=== PATIENT | female | born 1980 | race American Indian/Alaskan Native ===

== ENCOUNTER 2016-08-14 16:24 | Outpatient (CLI) | payer MEDICAID ==
[2016-08-14] MEDS ORDERED: LACTATED RINGERS 500 ML IV ONE (16:41)
[2016-08-14 17:13] LABS: Bacteria,Urine 1+ /HPF (Negative); Bilirubin,Urine NEG (Negative); Blood,Urine NEG (Negative); Ketones,Urine TR mg/dL (Negative); Leukocyte Esterase,Urine TR (Negative); Mucus,Urine FEW /HPF; Nitrite,Urine NEG (Negative); Protein,Urine <15 mg/dL mg/dL (Negative); Urobilinogen,Urine < 2.0 mg/dL (<2.0)
[2016-08-14 18:16] LABS: Basophils % (Auto) 0.5 % (0.0-1.8); Eosinophils % (Auto) 0.7 % (0.0-4.3); Hematocrit 33.3 % (30.3-42.9); Mean Corpuscular HGB Conc 33 % (30-34); Mean Corpuscular Hemoglobin 27 pg (28-32); Mean Corpuscular Volume 82 fl (79-97); Platelet Count 231 K/mm3 (140-440); Red Blood Count 4.08 M/mm3 (3.65-5.03); Red Cell Distribution Width 15.8 % (13.2-15.2); White Blood Count 10.2 K/mm3 (4.5-11.0)
[2016-08-14 18:35] LABS: Alanine Aminotransferase 16 units/L (7-56); Lactate Dehydrogenase 285 units/L (91-180)
[2016-08-14 19:23] VITALS: BP 135/74
[2016-08-14] MEDS ORDERED: LACTATED RINGERS 1,000 ML ONE (19:40)
--- NOTE | 2016-08-15 09:24 | Ultrasound Report ---
BIOPHYSICAL PROFILE: TECHNIQUE: Transabdominal ultrasound with Doppler interrogation. 2 - breathing movements 2 - movements 2 - posture and tone 2 - Qualitative amniotic fluid volume 8 - TOTAL SCORE OF POSSIBLE 8 Heart Rate (bpm) 144
--- NOTE | 2016-08-15 09:24 | Ultrasound Report ---
OB ULTRASOUND: TECHNIQUE: Transabdominal ultrasound with Doppler interrogation. Gestation: rice Position: cephalic Amniotic Fluid: WNL (7-24 cm) AMIE = 20.3 cm Placenta: fundal Placental Grade: II Heart Rate: 144 BPM BPD: 7.7 cm = 30 w 5 d HC: 28.9 cm = 31 w 5 d AC: 28.0 cm = 32 w 0 d FL: 6.5 cm = 33 w 2 d HC/AC Ratio: 1.03 Cephalic Index: 78.0 Estimated Weight: 1936 grams Clinical age = 32 w 1 d EDC: 10-08-16 US Gest. Age = 32 w 0 d EDC: 10-09-16
== END 2016-08-14 20:45 | disposition home or self-care (01) ==
LOC: TRG 16:24 → LD 16:25 → TRG 20:45
PROVIDERS: ATTEND Obstetrics & Gynecology
DX: Z34.93 Encounter for supervision of normal pregnancy, unspecified, third trimester (principal); Z3A.32 32 weeks gestation of pregnancy
CPT/HCPCS: 36415; 76816; 76819; 81001; 82565; 83615; 84450; 84460; 84550; 85025; 85027; J7120; 59025; 96360

== ENCOUNTER 2016-08-21 16:58 | Inpatient (IN) | payer MEDICAID ==
[2016-08-21] MEDS ORDERED: LACTATED RINGERS 500 ML IV ONE (17:34)
[2016-08-21 18:11] LABS: Hemoglobin 11.6 gm/dl (10.1-14.3); Mean Corpuscular HGB Conc 33 % (30-34); Mean Corpuscular Hemoglobin 27 pg (28-32); Mean Corpuscular Volume 83 fl (79-97); Platelet Count 236 K/mm3 (140-440); Red Blood Count 4.24 M/mm3 (3.65-5.03); White Blood Count 10.3 K/mm3 (4.5-11.0)
[2016-08-21 18:18] LABS: Bilirubin,Urine NEG (Negative); Blood,Urine NEG (Negative); Ketones,Urine NEG (Negative); Leukocyte Esterase,Urine NEG (Negative); Nitrite,Urine NEG (Negative); Protein,Urine <15 mg/dL mg/dL (Negative); Urobilinogen,Urine < 2.0 mg/dL (<2.0)
[2016-08-21 18:37] LABS: Alanine Aminotransferase 14 units/L (7-56); Uric Acid 4.1 mg/dL (3.5-7.6)
[2016-08-21] MEDS ORDERED: NORMODYNE PO ONE (18:44)
--- NOTE | 2016-08-21 18:50 | Event Note ---
Date: 08/21/16 Pt denies any headaches and blurry vision. She did not make apt today in the office due to not realizing it was scheduled at the [place] office. Pt has apt r/s for 08/24/16. Pt was due evening dose of meds at 1800 so will give the evening dose of the 800mg at this time. BP is elevated but improved with resting. Pt encouraged to keep apt and to continue to check bp. If bp stable will d/c home at this time. [facility] labs so far are negative for pre E.
[2016-08-21] MEDS ORDERED: LACTATED RINGERS 1,000 ML ONE (20:20)
[2016-08-21] MEDS ORDERED: MYLICON PO PRN (22:05)
[2016-08-21] MEDS ORDERED: ALUM-MAG HYDROX-SIMETH 200-200-20MG/5ML PO PRN (22:05)
[2016-08-21] MEDS ORDERED: COLACE PO PRN (22:05)
[2016-08-21] MEDS ORDERED: D50W (25GM) IV PRN (22:11)
--- NOTE | 2016-08-21 22:52 | History and Physical Report ---
[id number] complaint: elevated BP History of present illness: Pt presented to triage for evaluation for elevated blood pressures. She had taken medication late in the morning and was due to take next dose at the time. Pt was given dose of BP meds in triage and bp did respond. Pt however, was having contractions. Pt admitted for observation. EDC Calculations LMP: 10/08/2016 EDC Confirmation: 10/08/2016 Gestational Age: 7 1/7 weeks Past History : 2 Term Births: 1 Living Children: 1 Para: 1 Prev : 1 Aborta: 0 # 1 Delivery date: 2000 Weeks Gestation: term labor: no Delivery type: Delivery location: [place] Infant Sex: Male weight: 8# Comments: "baby's chin go stuck under pubic bone" Stat c/s Past Medical History: Diabetes, Type 2 Hypertension Past Surgical History: deviated septum repair 2014 Past Medical History Diabetes: yes Surgery (Non-supervisor sample preparation): deviated septum repair 2014 Abnormal PAP: positive, age 15, NL since [id number] Exposure: negative Infertility: negative Uterine Anomaly: negative Uterine Surgery (not C/S): negative Other Gynecologic Problems: negative Social Hx: Patient is single Smoking History: Patient is a former smoker. no drugs or ETOH Infection History Hx of STD: HPV HIV Risk Eval: no Hepatitis B Risk Eval: low risk Personal hx. of genital herpes: no Partner hx. of genital herpes: no Rash, Viral, or Febrile illness since last LMP? no Varicella/Chicken Pox Status: Previous Disease TB Risk: no Genetic History ADVANCED MATERNAL AGE Congenital Heart Defect: Mom: no Dad: no Alycia Disease: Mom: no Dad: no Thalassemia Mom: no Dad: no Neural Tube Defect Mom: no Dad: no Down's Syndrome Mom: no Dad: no Ethan-Sachs Mom: no Dad: no Sickle Cell Disease/Trait Mom: no Dad: no Hemophilia Mom: no Dad: no Muscular Dystrophy Mom: no Dad: no Cystic Fibrosis Mom: no Dad: no [place]ier Chorea Mom: no Dad: no Mental Retardation Mom: no Dad: no Fragile X Mom: no Dad: no Other Genetic/Chromosomal Disorder Mom: no Dad: no Child w/other defect Mom: no Dad: no Enviromental Exposures Xray Exposure: no Medication, drug, or alcohol use since LMP: no Chemical/Other Exposure: no Exposure to Cat Liter: no Hx of Parvovirus (Fifth Disease): no Occupational Exposure to Children: none Current Allergies (reviewed today): No known allergies Past History Past Medical History: hypertension, diabetes 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) Social history: other (see hpi) - Obstetrical History Expected Date of Delivery: 10/08/16 Actual Gestation: 33 Week(s) 2 Day(s) : 2 Para: 1 Number of Living Children: 1 Medications and Allergies Allergies Allergy/AdvReac Type Severity Reaction Status Date / Time Penicillins AdvReac Unknown Unknown Verified 04/11/16 16:09 Home Medications Medication Instructions Recorded Confirmed Last Taken Type Insulin Aspart Prot/Aspart 20 units SQ QHS 04/12/16 04/12/16 04/10/16 21:00 History [Novolog Mix 70/30] Insulin Glargine [Lantus] See Protocol SUB-Q BID 04/12/16 04/12/16 04/11/16 08: 00 History Labetalol [Normodyne] 600 mg PO TID 04/12/16 04/12/16 04/12/16 08:00 History 600mg Azithromycin [Zithromax] 250 mg PO QDAY #4 tablet 04/13/16 Unknown Rx Active Meds: Active Medications Acetaminophen (Tylenol) 650 mg PO Q4H PRN PRN Reason: Pain MILD(1-3)/Fever >100.5/PACE Al Hydrox/Mg Hydrox/Simethicone (Alum-Mag Hydrox-Simeth [id number]/5ml) 30 ml PO Q6H PRN PRN Reason: Indigestion Dextrose (D50w (25gm)) 50 ml IV PRN PRN PRN Reason: Hypoglycemia Docusate Sodium (Colace) 100 mg PO Q12H PRN PRN Reason: Constipation Lactated Ringer's (Lactated Ringers) 1,000 mls @ 125 mls/hr IV DIRECT HERO Insulin Human Regular (Novolin R) 0 units SUB-Q QHS HERO PRN Reason: Protocol Labetalol HCl (Normodyne) 800 mg PO TID HERO Multivitamins/Iron/Calcium ( Vitamin) 1 each PO QDAY HERO Nifedipine (Procardia Xl) 30 mg PO QDAY HERO Simethicone (Mylicon) 80 mg PO Q6H PRN PRN Reason: Gas pain Zolpidem Tartrate (Ambien) 10 mg PO ONCE PRN PRN Reason: Sleep Review of Systems All systems: negative - Vital Signs Vital signs: Vital Signs Pulse BP Pulse Ox 76 174/81 100 08/21/16 17:31 08/21/16 17:31 08/21/16 17:31 Temp Pulse Resp BP Pulse Ox 98.1 F 88 22 141/64 99 08/21/16 19:12 08/21/16 22:17 08/21/16 19:12 08/21/16 22:11 08/21/16 22:17 - Physical Exam Lungs: Positive: Normal air movement Abdomen: Positive: normal appearance, soft, normal bowel sounds. Negative: guarding Extremities: Positive: normal. Negative: tenderness, edema - Obstetrical FHR: category 1 Results Result Diagrams: 08/21/16 17:45 08/21/16 17:45 Abnormal lab results 08/21/16 08/21/16 Range/Units 17:45 17:45 MCH 27 L (28-32) pg RDW 16.0 H (13.2-15.2) % Creatinine 0.6 L (0.7-1.2) mg/dL All other labs normal. Assessment and Plan - Patient Problems (1) 33 weeks gestation of Current Visit: Yes Status: Acute (2) Hypertension affecting in third trimester Current Visit: Yes Status: Acute Plan to address problem: -bp stable now -con't current bp meds (3) Diabetes in Current Visit: Yes Status: Acute Qualifiers: Trimester: third trimester Plan to address problem: -ADA diet -sliding scale insulin (4) uterine contractions in third trimester, antepartum Current Visit: Yes Status: Acute Plan to address problem: - IV hydration -closely monitor
[2016-08-21] MEDS: LACTATED RINGERS 1,000 ML IV SCH (23:32)
[2016-08-22] MEDS: TYLENOL PO PRN ×2 (05:00→11:17)
[2016-08-22] MEDS: NORMODYNE PO SCH ×3 (06:00→21:42)
--- NOTE | 2016-08-22 07:00 | Event Note ---
Date: 08/22/16 Blood pressures are in the severe range. Will start a 24hur urine collection at this time and administer steroids.
[2016-08-22] MEDS: LACTATED RINGERS 1,000 ML IV SCH ×2 (07:44→17:11)
--- NOTE | 2016-08-22 08:19 | Event Note ---
<EMERITA PORRAS - Last Filed: 08/22/16 08:05> Date: 08/22/16 36 yo last baby by c/s 17 years ago. EDC is 10/08 so is now 33wk and 2 days. Known chronic HTN on Labetolol 800mg bid and Nifedipine 30mg XL q d and known DM2. By her report is now on fasting Humulin N 10/ Novolog 20, and pc Novolog 30, and hs Humulin N 20. She was sent in for elevated BP and was found to be earl. BP has improved since BP meds reinstituted. HAS NOT HAD ANY INSULIN SINCE YESTERDAY AT 2 PM AND HER FASTING GLUCOSE WAS 106 BY ACCUCHECK. On my exam her cervix is long and closed, and she is not feeling and I can't palpate any of the contractions that are picking up on monitor, so at best she is having very mild ones. We have started steroids and begun a 24 hour urine. I suspect that she will need to be delivered after steroids are administered. Very concerning for decreased need for insulin at this point in this . Plan to reconsult [facility], who knows this patient well. <ROWDY DO - Last Filed: 08/22/16 08:25> Date: 08/22/[address] Do, did not realize I was logged in under Dr Porras 's name.
--- NOTE | 2016-08-22 08:24 | Event Note ---
Date: 08/22/16 Previous note written by , not Dr Porras
[2016-08-22] MEDS: CELESTONE SOLUSPAN IM SCH (08:27)
[2016-08-22] MEDS: PRENATAL VITAMIN PO SCH (11:19)
[2016-08-22] MEDS: PROCARDIA XL PO SCH (11:19)
--- NOTE | 2016-08-22 12:06 | Event Note ---
Date: 08/22/16 postprandial glucose 177 so added: Insulin N 10 u in AM and 10u hs Insulin R 10 u with meals high dose sliding scale of Insulin R
[2016-08-22] MEDS: APRESOLINE IV PRN (12:34)
--- NOTE | 2016-08-22 13:15 | Consultation ---
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 History : 2 Medications and Allergies Allergies Allergy/AdvReac Type Severity Reaction Status Date / Time Penicillins AdvReac Unknown Unknown Verified 04/11/16 16:09 Home Medications Medication Instructions Recorded Confirmed Last Taken Type Insulin Aspart Prot/Aspart 20 units SQ QHS 04/12/16 04/12/16 04/10/16 21:00 History [Novolog Mix 70/30] Insulin Glargine [Lantus] See Protocol SUB-Q BID 04/12/16 04/12/16 04/11/16 08: 00 History Labetalol [Normodyne] 600 mg PO TID 04/12/16 04/12/16 04/12/16 08:00 History 600mg Azithromycin [Zithromax] 250 mg PO QDAY #4 tablet 04/13/16 Unknown Rx Active Meds: Active Medications Acetaminophen (Tylenol) 650 mg PO Q4H PRN PRN Reason: Pain MILD(1-3)/Fever >100.5/PACE Last Admin: 08/22/16 11:17 Dose: 650 mg Al Hydrox/Mg Hydrox/Simethicone (Alum-Mag Hydrox-Simeth [id number]/5ml) 30 ml PO Q6H PRN PRN Reason: Indigestion Betamethasone Acet/Betameth SodPhos (Celestone Soluspan) 12 mg IM Q24HR HERO Last Admin: 08/22/16 08:27 Dose: 12 mg Dextrose (D50w (25gm)) 50 ml IV PRN PRN PRN Reason: Hypoglycemia Docusate Sodium (Colace) 100 mg PO Q12H PRN PRN Reason: Constipation Hydralazine HCl (Apresoline) 5 mg IV Q30MIN PRN PRN Reason: Blood Pressure Last Admin: 08/22/16 12:34 Dose: 5 mg Lactated Ringer's (Lactated Ringers) 1,000 mls @ 125 mls/hr IV DIRECT HERO Last Admin: 08/22/16 07:44 Dose: 125 mls/hr Insulin Human NPH (Novolin N) 10 unit SUB-Q BIDDIAB HERO Stop: 08/24/16 16:59 Insulin Human Regular (Novolin R) 0 units SUB-Q QHS HERO PRN Reason: Protocol Insulin Human Regular (Novolin R) 10 units SUB-Q AC [facility] Stop: 08/24/16 11:59 Last Admin: 08/22/16 13:06 Dose: 10 units Labetalol HCl (Normodyne) 800 mg PO TID@0600,1400,2200 [facility] Last Admin: 08/22/16 06:00 Dose: 800 mg Multivitamins/Iron/Calcium ( Vitamin) 1 each PO QDAY [facility] Last Admin: 08/22/16 11:19 Dose: 1 each Nifedipine (Procardia Xl) 30 mg PO QDAY [facility] Last Admin: 08/22/16 11:19 Dose: 30 mg Simethicone (Mylicon) 80 mg PO Q6H PRN PRN Reason: Gas pain Zolpidem Tartrate (Ambien) 10 mg PO ONCE PRN PRN Reason: Sleep - Vital Signs Vital signs: Vital Signs Pulse BP Pulse Ox 76 174/81 100 08/21/16 17:31 08/21/16 17:31 08/21/16 17:31 Temp Pulse Resp BP Pulse Ox 97.7 F 83 20 154/78 97 08/22/16 08:32 08/22/16 13:12 08/22/16 11:17 08/22/16 12:40 08/22/16 13:12 Results Result Diagrams: 08/21/16 17:45 08/21/16 17:45 Abnormal lab results 08/21/16 08/21/16 08/22/16 Range/Units 17:45 17:45 06:19 MCH 27 L (28-32) pg RDW 16.0 H (13.2-15.2) % Creatinine 0.6 L (0.7-1.2) mg/dL POC Glucose 106 H (70-105) 08/22/16 Range/Units 11:22 MCH (28-32) pg RDW (13.2-15.2) % Creatinine (0.7-1.2) mg/dL POC Glucose 177 H (70-105) All other labs normal. Assessment and Plan AMF Consultation requested Pt seen Full consult to follow
--- NOTE | 2016-08-22 17:18 | Event Note ---
Date: 08/22/16 Pt BP much better now on her meds and at bedrest. Last glucose was 222, presumably there was insulin given per sliding scale orders. Will confirm that with the nurse.
[2016-08-22] MEDS ORDERED: D50W (25GM) IV PRN ×2 (17:37→17:54)
[2016-08-22] MEDS: AMBIEN PO PRN (22:04)
[2016-08-23] MEDS: LACTATED RINGERS 1,000 ML IV SCH ×3 (03:15→20:57)
[2016-08-23] MEDS: NORMODYNE PO SCH ×3 (07:00→22:25)
--- NOTE | 2016-08-23 07:39 | Progress Note ---
Assessment and Plan - Patient Problems (1) 33 weeks gestation of Diagnosis Date: 08/23/16 Current Visit: Yes Status: Acute Plan to address problem: BMZ BMZ to be completed @ 0830 this AM (2) Diabetes in Current Visit: Yes Status: Acute Qualifiers: Diabetes in type: pre-existing, type 2 Trimester: third trimester Qualified Code(s): O24.113 - Pre-existing type 2 diabetes mellitus, in , third trimester Plan to address problem: BS remain variable SS Insulin ordered Over 200 last PM. Fasting BS not yet recorded (3) Hypertension affecting in third trimester Current Visit: Yes Status: Acute Plan to address problem: BP very labile 170-160/80-60 Pt c/o severe PACE when she is OOB to go to the toilet and "that's when my BP is high" here now seeing pt will await her recommendations consulted (4) uterine contractions in third trimester, antepartum Current Visit: Yes Status: Acute Plan to address problem: Pt denies any ctx this AM. Monitor recording irreg mild ctx prior to pt being OOB to void. None recorded now. Will await AMFM consult 24hr urine pending consulted Subjective - Subjective Date of service: 08/23/16 (pt w/o complaint this AM Anxious to know the plan) Patient reports: new complaints (pt states she has a PACE when she gets up to go to the toilet), movement normal Objective - Vital Signs Vital Signs: Vital Signs - 12hr 08/22/16 08/22/16 08/22/16 20:00 20:01 20:06 Temperature 98.0 F Pulse Rate 82 83 71 Pulse Rate [ 78 From Monitor] Respiratory 20 Rate Blood Pressure 146/81 Blood Pressure 169/73 [Right Arm] O2 Sat by Pulse 99 99 Oximetry 08/22/16 08/22/16 08/22/16 20:11 20:16 20:21 Temperature Pulse Rate 93 H 85 95 H Pulse Rate [ From Monitor] Respiratory Rate Blood Pressure Blood Pressure [Right Arm] O2 Sat by Pulse 98 98 98 Oximetry 08/22/16 08/22/16 08/22/16 20:27 20:32 20:37 Temperature Pulse Rate 77 75 74 Pulse Rate [ From Monitor] Respiratory Rate Blood Pressure Blood Pressure [Right Arm] O2 Sat by Pulse 99 97 97 Oximetry 08/22/16 08/22/16 08/22/16 20:40 20:42 20:47 Temperature Pulse Rate 80 91 H 74 Pulse Rate [ From Monitor] Respiratory Rate Blood Pressure 143/74 Blood Pressure [Right Arm] O2 Sat by Pulse 97 98 Oximetry 08/22/16 08/22/16 08/22/16 20:52 20:57 21:02 Temperature Pulse Rate 75 85 85 Pulse Rate [ From Monitor] Respiratory Rate Blood Pressure Blood Pressure [Right Arm] O2 Sat by Pulse 97 97 96 Oximetry 08/22/16 08/22/16 08/22/16 21:07 21:12 21:17 Temperature Pulse Rate 79 79 77 Pulse Rate [ From Monitor] Respiratory Rate Blood Pressure Blood Pressure [Right Arm] O2 Sat by Pulse 97 96 96 Oximetry 08/22/16 08/22/16 08/22/16 21:22 21:27 21:32 Temperature Pulse Rate 79 81 84 Pulse Rate [ From Monitor] Respiratory Rate Blood Pressure Blood Pressure [Right Arm] O2 Sat by Pulse 97 97 97 Oximetry 08/22/16 08/22/16 08/22/16 21:37 21:40 21:42 Temperature Pulse Rate 78 73 78 Pulse Rate [ From Monitor] Respiratory Rate Blood Pressure 163/79 163/79 Blood Pressure [Right Arm] O2 Sat by Pulse 97 93 98 Oximetry 08/22/16 08/22/16 08/22/16 21:47 21:52 21:57 Temperature Pulse Rate 79 89 82 Pulse Rate [ From Monitor] Respiratory Rate Blood Pressure Blood Pressure [Right Arm] O2 Sat by Pulse 97 97 97 Oximetry 08/22/16 08/22/16 08/22/16 22:02 22:07 22:12 Temperature Pulse Rate 80 82 84 Pulse Rate [ From Monitor] Respiratory Rate Blood Pressure Blood Pressure [Right Arm] O2 Sat by Pulse 97 97 97 Oximetry 08/22/16 08/22/16 08/22/16 22:17 22:22 22:27 Temperature Pulse Rate 84 82 85 Pulse Rate [ From Monitor] Respiratory Rate Blood Pressure Blood Pressure [Right Arm] O2 Sat by Pulse 96 96 96 Oximetry 08/22/16 08/22/16 08/22/16 22:32 22:37 22:40 Temperature Pulse Rate 83 83 84 Pulse Rate [ From Monitor] Respiratory Rate Blood Pressure Blood Pressure [Right Arm] O2 Sat by Pulse 96 96 93 Oximetry 08/22/16 08/22/16 08/22/16 22:41 22:42 22:47 Temperature Pulse Rate 80 89 92 H Pulse Rate [ From Monitor] Respiratory Rate Blood Pressure 145/76 Blood Pressure [Right Arm] O2 Sat by Pulse 97 97 Oximetry 08/22/16 08/22/16 08/22/16 22:52 22:57 23:02 Temperature Pulse Rate 97 H 98 H 88 Pulse Rate [ From Monitor] Respiratory Rate Blood Pressure Blood Pressure [Right Arm] O2 Sat by Pulse 96 97 96 Oximetry 08/23/16 08/23/16 08/23/16 00:00 05:22 06:05 Temperature 97.8 F 97.7 F Pulse Rate 78 Pulse Rate [ 80 70 From Monitor] Respiratory 18 20 Rate Blood Pressure 140/72 Blood Pressure 145/76 93/52 [Right Arm] O2 Sat by Pulse Oximetry 08/23/16 08/23/16 08/23/16 07:00 07:30 07:31 Temperature 98.1 F Pulse Rate 70 78 71 Pulse Rate [ From Monitor] Respiratory 18 Rate Blood Pressure 93/52 146/84 Blood Pressure [Right Arm] O2 Sat by Pulse 98 98 Oximetry - Exam Breasts: deferred Cardiovascular: Regular rate Lungs: Normal air movement Abdomen: Present: normal appearance, soft Uterus: Present: normal FHR: category 1 Uterine Contraction Monitor Mode: External Uterine Contraction Pattern: Absent Uterine Tone Measurement Phase: Resting Extremities: edema Deep Tendon Reflex Grade: Normal but brisk +3 - Labs Labs: Abnormal Labs 08/21/16 08/21/16 08/22/16 17:45 17:45 06:19 MCH 27 L RDW 16.0 H Creatinine 0.6 L POC Glucose 106 H 08/22/16 08/22/16 08/22/16 11:22 16:51 20:12 MCH RDW Creatinine POC Glucose 177 H 222 H 238 H Laboratory Results - last 24 hr 08/22/16 08/22/16 08/22/16 11:22 16:51 20:12 POC Glucose 177 H 222 H 238 H
--- NOTE | 2016-08-23 07:44 | Progress Note ---
Assessment and Plan Assessment 1. 33+3 weeks 2. Chronic HTN, r/o superimposed pre-eclampsia 3. Type II diabetes, poor control (HgA1c on 07/18/16 was 9.6%) 4. contractions 5. Previous c/s 6. Obesity Recommendations 1. 24 hour urine pending 2. Continue present BP meds, IV meds as needed, could increase nifedipine to 60mg/day if needed 3. Continue insulin and ss insulin 4. Steroid -- second dose this AM 5. If 24 hour urine c/w pre-eclampsia (>300mg), meets criteria for severe disease, and delivery indicated at 34 weeks 6. If 24 hour urine not c/w pre-eclampsia, aggressive management of HTN recommended, other indications for delivery include inability to control BP, indications, 37 weeks (likely to be sooner) Subjective - Subjective Date of service: 08/23/16 Interval history: Denies PACE or visual changes Patient reports: movement normal Objective - Vital Signs Vital Signs: Vital Signs - 12hr 08/22/16 08/22/16 08/22/16 20:00 20:01 20:06 Temperature 98.0 F Pulse Rate 82 83 71 Pulse Rate [ 78 From Monitor] Respiratory 20 Rate Blood Pressure 146/81 Blood Pressure 169/73 [Right Arm] O2 Sat by Pulse 99 99 Oximetry 08/22/16 08/22/16 08/22/16 20:11 20:16 20:21 Temperature Pulse Rate 93 H 85 95 H Pulse Rate [ From Monitor] Respiratory Rate Blood Pressure Blood Pressure [Right Arm] O2 Sat by Pulse 98 98 98 Oximetry 08/22/16 08/22/16 08/22/16 20:27 20:32 20:37 Temperature Pulse Rate 77 75 74 Pulse Rate [ From Monitor] Respiratory Rate Blood Pressure Blood Pressure [Right Arm] O2 Sat by Pulse 99 97 97 Oximetry 08/22/16 08/22/16 08/22/16 20:40 20:42 20:47 Temperature Pulse Rate 80 91 H 74 Pulse Rate [ From Monitor] Respiratory Rate Blood Pressure 143/74 Blood Pressure [Right Arm] O2 Sat by Pulse 97 98 Oximetry 08/22/16 08/22/16 08/22/16 20:52 20:57 21:02 Temperature Pulse Rate 75 85 85 Pulse Rate [ From Monitor] Respiratory Rate Blood Pressure Blood Pressure [Right Arm] O2 Sat by Pulse 97 97 96 Oximetry 08/22/16 08/22/16 08/22/16 21:07 21:12 21:17 Temperature Pulse Rate 79 79 77 Pulse Rate [ From Monitor] Respiratory Rate Blood Pressure Blood Pressure [Right Arm] O2 Sat by Pulse 97 96 96 Oximetry 08/22/16 08/22/16 08/22/16 21:22 21:27 21:32 Temperature Pulse Rate 79 81 84 Pulse Rate [ From Monitor] Respiratory Rate Blood Pressure Blood Pressure [Right Arm] O2 Sat by Pulse 97 97 97 Oximetry 08/22/16 08/22/16 08/22/16 21:37 21:40 21:42 Temperature Pulse Rate 78 73 78 Pulse Rate [ From Monitor] Respiratory Rate Blood Pressure 163/79 163/79 Blood Pressure [Right Arm] O2 Sat by Pulse 97 93 98 Oximetry 08/22/16 08/22/16 08/22/16 21:47 21:52 21:57 Temperature Pulse Rate 79 89 82 Pulse Rate [ From Monitor] Respiratory Rate Blood Pressure Blood Pressure [Right Arm] O2 Sat by Pulse 97 97 97 Oximetry 08/22/16 08/22/16 08/22/16 22:02 22:07 22:12 Temperature Pulse Rate 80 82 84 Pulse Rate [ From Monitor] Respiratory Rate Blood Pressure Blood Pressure [Right Arm] O2 Sat by Pulse 97 97 97 Oximetry 08/22/16 08/22/16 08/22/16 22:17 22:22 22:27 Temperature Pulse Rate 84 82 85 Pulse Rate [ From Monitor] Respiratory Rate Blood Pressure Blood Pressure [Right Arm] O2 Sat by Pulse 96 96 96 Oximetry 08/22/16 08/22/16 08/22/16 22:32 22:37 22:40 Temperature Pulse Rate 83 83 84 Pulse Rate [ From Monitor] Respiratory Rate Blood Pressure Blood Pressure [Right Arm] O2 Sat by Pulse 96 96 93 Oximetry 08/22/16 08/22/16 08/22/16 22:41 22:42 22:47 Temperature Pulse Rate 80 89 92 H Pulse Rate [ From Monitor] Respiratory Rate Blood Pressure 145/76 Blood Pressure [Right Arm] O2 Sat by Pulse 97 97 Oximetry 08/22/16 08/22/16 08/22/16 22:52 22:57 23:02 Temperature Pulse Rate 97 H 98 H 88 Pulse Rate [ From Monitor] Respiratory Rate Blood Pressure Blood Pressure [Right Arm] O2 Sat by Pulse 96 97 96 Oximetry 08/23/16 08/23/16 08/23/16 00:00 05:22 06:05 Temperature 97.8 F 97.7 F Pulse Rate 78 Pulse Rate [ 80 70 From Monitor] Respiratory 18 20 Rate Blood Pressure 140/72 Blood Pressure 145/76 93/52 [Right Arm] O2 Sat by Pulse Oximetry 08/23/16 08/23/16 08/23/16 07:00 07:30 07:31 Temperature 98.1 F Pulse Rate 70 78 71 Pulse Rate [ From Monitor] Respiratory 18 Rate Blood Pressure 93/52 146/84 Blood Pressure [Right Arm] O2 Sat by Pulse 98 98 Oximetry - Exam Cardiovascular: Regular rate Lungs: Clear to auscultation Abdomen: Present: normal appearance, soft - Labs Labs: Abnormal Labs 08/21/16 08/21/16 08/22/16 17:45 17:45 06:19 MCH 27 L RDW 16.0 H Creatinine 0.6 L POC Glucose 106 H 08/22/16 08/22/16 08/22/16 11:22 16:51 20:12 MCH RDW Creatinine POC Glucose 177 H 222 H 238 H Laboratory Results - last 24 hr 08/22/16 08/22/16 08/22/16 11:22 16:51 20:12 POC Glucose 177 H 222 H 238 H
--- NOTE | 2016-08-23 08:18 | Ultrasound Report ---
BIOPHYSICAL PROFILE: History: well-being. Technique: Transabdominal ultrasound with Doppler interrogation. 2 - breathing movements 2 - movements 2 - posture and tone 2 - Qualitative amniotic fluid volume 8 - TOTAL SCORE OF POSSIBLE 8 Heart Rate (bpm) 139
[2016-08-23] MEDS: CELESTONE SOLUSPAN IM SCH ×2 (08:30→22:11)
--- NOTE | 2016-08-23 10:23 | Ultrasound Report ---
OB ULTRASOUND: HISTORY: well-being. TECHNIQUE: Transabdominal ultrasound with Doppler interrogation. Gestation: rice Position: cephalic Amniotic Fluid: WNL (7-24 cm) AMIE = 22.5 cm Placenta: fundal Placental Grade: II Heart Rate: 139 BPM BPD: 7.9 cm = 31 w 6 d HC: 30.8 cm = 34 w 2 d AC: 29.4 cm = 33 w 2 d FL: 6.5 cm = 33 w 4 d HC/AC Ratio: 1.05 Cephalic Index: 77.0 Estimated Weight: 2176 grams Clinical age = 33 w 2 d EDC: 10-08-16 US Gest. Age = 33 w 2 d EDC: 10-08-16
[2016-08-23] MEDS: PRENATAL VITAMIN PO SCH (10:33)
[2016-08-23] MEDS: PROCARDIA XL PO SCH (10:33)
--- NOTE | 2016-08-23 19:08 | Event Note ---
Date: 08/23/16 Appreciate maternal-'s help. Patient 24 hour urine protein was elevated. Discussed the findings with the patient and discussed the plan of care. Patient understands the plan is to deliver at 34 weeks. She will deliver by section and desires tubal ligation.Patient desires permanent sterilization. She declined temporary contraceptives. She understands the risks of the surgery include bleeding infection possible damage to bowel bladder or ureters. She understands that this surgery would make her permanently sterile. She also understands the approximate 1% failure rate. The patient understands all the above and desires to proceed. She also understands that she will deliver early than 34 weeks for any or maternal indications.
[2016-08-23] MEDS: AMBIEN PO PRN (22:25)
[2016-08-24] MEDS: LACTATED RINGERS 1,000 ML IV SCH ×2 (03:55→14:21)
[2016-08-24] MEDS: NORMODYNE PO SCH ×4 (06:17→22:27)
[2016-08-24] MEDS: APRESOLINE IV PRN ×2 (08:30→22:40)
--- NOTE | 2016-08-24 08:59 | Progress Note ---
Assessment and Plan - Patient Problems (1) 33 weeks gestation of Diagnosis Date: 08/23/16 Current Visit: Yes Status: Acute (2) Chronic hypertension with superimposed pre-eclampsia Current Visit: Yes Status: Acute Plan to address problem: 1. Continue present BP meds, IV meds as needed, could increase nifedipine to 60mg/day if needed 2. Continue insulin and ss insulin 3. Steroid -- second dose performed 08/23/2016 @830a 4. 24 hour urine c/w pre-eclampsia (>300mg), meets criteria for severe disease, will deliver indicated at 34 weeks (3) Maternal care due to low transverse uterine scar from previous delivery Current Visit: Yes Status: Acute (4) Sterilization Current Visit: Yes Status: Acute Plan to address problem: Consent signed and on chart (5) Diabetes in Current Visit: Yes Status: Acute Qualifiers: Diabetes in type: pre-existing, type 2 Trimester: third trimester Qualified Code(s): O24.113 - Pre-existing type 2 diabetes mellitus, in , third trimester (6) BMI 38.0-38.9,adult Current Visit: Yes Status: Acute Subjective - Subjective Date of service: 08/24/16 Principal diagnosis: IUP@33 4/7wga, CHTN w/ PreE, DM Patient reports: movement normal, no new complaints, no contractions ( denies PACE, visual changes or RUQ pain) Objective - Vital Signs Vital Signs: Vital Signs - 12hr 08/23/16 08/23/16 08/23/16 21:33 22:07 22:25 Temperature Pulse Rate 75 66 66 Pulse Rate [ From Monitor] Respiratory Rate Blood Pressure 170/84 124/59 124/59 Blood Pressure [Left Arm] O2 Sat by Pulse Oximetry 08/23/16 08/23/16 08/24/16 22:34 23:33 00:35 Temperature Pulse Rate 68 88 91 H Pulse Rate [ From Monitor] Respiratory Rate Blood Pressure 137/63 143/66 Blood Pressure [Left Arm] O2 Sat by Pulse 97 Oximetry 08/24/16 08/24/16 08/24/16 00:36 00:38 01:34 Temperature 98.3 F Pulse Rate 82 70 Pulse Rate [ From Monitor] Respiratory 22 Rate Blood Pressure 155/72 135/72 Blood Pressure [Left Arm] O2 Sat by Pulse Oximetry 08/24/16 08/24/16 08/24/16 02:35 03:33 03:46 Temperature Pulse Rate 68 60 66 Pulse Rate [ From Monitor] Respiratory Rate Blood Pressure 128/72 124/65 Blood Pressure [Left Arm] O2 Sat by Pulse 98 Oximetry 08/24/16 08/24/16 08/24/16 03:56 06:13 06:14 Temperature 98.4 F Pulse Rate 58 L 63 Pulse Rate [ From Monitor] Respiratory 22 Rate Blood Pressure 140/77 Blood Pressure [Left Arm] O2 Sat by Pulse 98 Oximetry 08/24/16 08/24/16 08/24/16 06:17 06:19 06:24 Temperature Pulse Rate 58 L 57 L 62 Pulse Rate [ From Monitor] Respiratory Rate Blood Pressure 140/77 Blood Pressure [Left Arm] O2 Sat by Pulse 98 99 Oximetry 08/24/16 08/24/16 08/24/16 07:15 08:11 08:13 Temperature 98.3 F Pulse Rate 60 61 Pulse Rate [ 62 From Monitor] Respiratory 18 Rate Blood Pressure 142/72 179/82 Blood Pressure 179/82 [Left Arm] O2 Sat by Pulse 98 99 Oximetry 08/24/16 08/24/16 08/24/16 08:29 08:30 08:34 Temperature Pulse Rate 62 62 68 Pulse Rate [ From Monitor] Respiratory Rate Blood Pressure 179/82 179/82 157/73 Blood Pressure [Left Arm] O2 Sat by Pulse Oximetry 08/24/16 08:38 Temperature Pulse Rate 72 Pulse Rate [ From Monitor] Respiratory Rate Blood Pressure 152/76 Blood Pressure [Left Arm] O2 Sat by Pulse Oximetry - Exam Breasts: deferred Cardiovascular: Regular rate Lungs: Clear to auscultation, Normal air movement Abdomen: Present: normal appearance, soft FHR comments: current having AM care Uterine Contraction Monitor Mode: External Extremities: normal Deep Tendon Reflex Grade: Normal +2 - Labs Labs: Abnormal Labs 08/21/16 08/21/16 08/22/16 17:45 17:45 06:19 MCH 27 L RDW 16.0 H Creatinine 0.6 L POC Glucose 106 H Urine Creatinine Ur Total Protein 24 Hr Urine Total Protein 08/22/16 08/22/16 08/22/16 11:22 16:51 20:00 MCH RDW Creatinine POC Glucose 177 H 222 H Urine Creatinine 62.9 H Ur Total Protein 24 Hr 728.00 H Urine Total Protein 26 H 08/22/16 08/23/16 08/23/16 20:12 10:32 14:37 MCH RDW Creatinine POC Glucose 238 H 149 H 260 H Urine Creatinine Ur Total Protein 24 Hr Urine Total Protein 08/23/16 08/23/16 08/24/16 19:49 22:24 05:49 MCH RDW Creatinine POC Glucose 225 H 201 H 111 H Urine Creatinine Ur Total Protein 24 Hr Urine Total Protein Laboratory Results - last 24 hr 08/22/16 08/23/16 08/23/16 20:00 10:32 14:37 POC Glucose 149 H 260 H Urine Creatinine 62.9 H Ur Creatinine 24 Hour 1.8 Ur Total Protein 24 Hr 728.00 H Urine Total Protein 26 H 08/23/16 08/23/16 08/24/16 19:49 22:24 05:49 POC Glucose 225 H 201 H 111 H Urine Creatinine Ur Creatinine 24 Hour Ur Total Protein 24 Hr Urine Total Protein
[2016-08-24 09:41] LABS: Hematocrit 31.9 % (30.3-42.9); Hemoglobin 10.4 gm/dl (10.1-14.3); Mean Corpuscular HGB Conc 32 % (30-34); Mean Corpuscular Hemoglobin 27 pg (28-32); Mean Corpuscular Volume 82 fl (79-97); Platelet Count 210 K/mm3 (140-440); Red Blood Count 3.89 M/mm3 (3.65-5.03); Red Cell Distribution Width 16.1 % (13.2-15.2); White Blood Count 10.5 K/mm3 (4.5-11.0)
[2016-08-24 09:55] LABS: Alanine Aminotransferase 14 units/L (7-56); Lactate Dehydrogenase 171 units/L (91-180); Uric Acid 5.5 mg/dL (3.5-7.6)
[2016-08-24] MEDS: PRENATAL VITAMIN PO SCH ×2 (09:58→10:14)
[2016-08-24] MEDS: PROCARDIA XL PO SCH (10:13)
--- NOTE | 2016-08-24 10:58 | Ultrasound Report ---
OB LIMITED History: well-being Technique: Transabdominal ultrasound with Doppler interrogation. Gestation: Single Position: Cephalic Amniotic Fluid: Normal AMIE = 21.3 cm Heart Rate: 133 BPM
[2016-08-25] MEDS: APRESOLINE IV PRN ×3 (03:10→19:59)
--- NOTE | 2016-08-25 05:23 | Progress Note ---
Assessment and Plan - Patient Problems (1) 33 weeks gestation of Diagnosis Date: 08/23/16 Current Visit: Yes Status: Acute (2) Diabetes in Current Visit: Yes Status: Acute Qualifiers: Diabetes in type: pre-existing, type 2 Trimester: third trimester Qualified Code(s): O24.113 - Pre-existing type 2 diabetes mellitus, in , third trimester (3) Hypertension affecting in third trimester Current Visit: Yes Status: Acute Plan to address problem: Received call from RN caring for pt stating she had to give a second dose of Hydralizine for her shift. First dose was given @ 2240 for BPs 192/85, 181/79 Pressures responded well remaining in the 140-150/60-80 until 0230 BP 180/84 second dose Hydralizine was given. was informed by myself She called RN and further instructions were given and noted. BPs now 150-160/70-80 Visited with pt on my arrival. Pt is in good spirits Denies any PACE, blurred vision, chest pain. DTRs brisk w/o clonus, edema in hands and face. FHR tracing has episodes of minimal variability, with obsessional accels with movement. Overall reassuring strip. Periods of ctx appear to be related to when pt needs to empty her bladder. The ctx go away after voiding. Pt denies feeling most of them. Pt is now NPO. Will report to . Continue plan of care. (4) uterine contractions in third trimester, antepartum Current Visit: Yes Status: Acute Subjective - Subjective Date of service: 08/25/16 (pt in good spirits; denies PACE, blurred vision, chest pain) Principal diagnosis: IUP@33 4/7wga, CHTN w/ PreE, DM Patient reports: movement normal, no new complaints, no contractions ( denies PACE, visual changes or RUQ pain) Objective - Vital Signs Vital Signs: Vital Signs - 12hr 08/24/16 08/24/16 08/24/16 19:50 19:51 22:27 Temperature 98.6 F Pulse Rate 68 68 Respiratory 22 Rate Blood Pressure 134/76 181/79 08/24/16 08/24/16 08/24/16 22:34 22:40 22:47 Temperature Pulse Rate 68 68 72 Respiratory Rate Blood Pressure 181/79 181/79 171/79 08/24/16 08/24/16 08/24/16 22:52 22:57 23:01 Temperature Pulse Rate 70 69 68 Respiratory Rate Blood Pressure 192/85 170/77 164/70 08/24/16 08/24/16 08/25/16 23:06 23:14 00:16 Temperature Pulse Rate 75 71 85 Respiratory Rate Blood Pressure 164/75 132/59 148/69 08/25/16 08/25/16 08/25/16 00:33 01:16 02:16 Temperature 98.2 F Pulse Rate 82 78 Respiratory 20 Rate Blood Pressure 135/62 145/63 08/25/16 08/25/16 08/25/16 02:32 02:44 02:55 Temperature Pulse Rate 65 69 69 Respiratory Rate Blood Pressure 168/77 166/77 180/84 08/25/16 08/25/16 08/25/16 03:15 03:21 03:26 Temperature Pulse Rate 65 67 71 Respiratory Rate Blood Pressure 157/77 156/79 156/74 08/25/16 08/25/16 08/25/16 03:31 03:36 03:41 Temperature Pulse Rate 77 71 73 Respiratory Rate Blood Pressure 169/74 165/72 151/67 08/25/16 08/25/16 03:46 05:00 Temperature Pulse Rate 77 66 Respiratory Rate Blood Pressure 153/70 171/83 - Exam Breasts: deferred Cardiovascular: Regular rate Lungs: Clear to auscultation, Normal air movement Abdomen: Present: normal appearance, soft, normal bowel sounds. Absent: distention, tenderness Vulva: both: normal Uterus: Present: normal FHR: auscultation normal, category 1 (periods of decreased variability; overall reassuring) Uterine Contraction Monitor Mode: External Uterine Contraction Frequency (min): irregular Uterine Contraction Pattern: Irregular Uterine Tone Measurement Phase: Resting Uterine Contraction Intensity: Mild (pt denies feeling most of them) - Labs Labs: Abnormal Labs 08/21/16 08/21/16 08/22/16 17:45 17:45 06:19 MCH 27 L RDW 16.0 H Creatinine 0.6 L POC Glucose 106 H Urine Creatinine Ur Total Protein 24 Hr Urine Total Protein 08/22/16 08/22/16 08/22/16 11:22 16:51 20:00 MCH RDW Creatinine POC Glucose 177 H 222 H Urine Creatinine 62.9 H Ur Total Protein 24 Hr 728.00 H Urine Total Protein 26 H 08/22/16 08/23/16 08/23/16 20:12 10:32 14:37 MCH RDW Creatinine POC Glucose 238 H 149 H 260 H Urine Creatinine Ur Total Protein 24 Hr Urine Total Protein 08/23/16 08/23/16 08/24/16 19:49 22:24 05:49 MCH RDW Creatinine POC Glucose 225 H 201 H 111 H Urine Creatinine Ur Total Protein 24 Hr Urine Total Protein 08/24/16 08/24/16 08/24/16 08:53 08:53 10:09 MCH 27 L RDW 16.1 H Creatinine 0.6 L POC Glucose 159 H Urine Creatinine Ur Total Protein 24 Hr Urine Total Protein 08/24/16 08/24/16 08/24/16 13:42 19:16 22:10 MCH RDW Creatinine POC Glucose 173 H 161 H 145 H Urine Creatinine Ur Total Protein 24 Hr Urine Total Protein Laboratory Results - last 24 hr 08/24/16 08/24/16 08/24/16 05:49 08:53 08:53 WBC 10.5 RBC 3.89 Hgb 10.4 Hct 31.9 MCV 82 MCH 27 L MCHC 32 RDW 16.1 H Plt Count 210 Creatinine 0.6 L Estimated GFR > 60 POC Glucose 111 H Uric Acid 5.5 AST 16 ALT 14 Lactate Dehydrogenase 171 Blood Type Antibody Screen 08/24/16 08/24/16 08/24/16 09:01 10:09 13:42 WBC RBC Hgb Hct MCV MCH MCHC RDW Plt Count Creatinine Estimated GFR POC Glucose 159 H 173 H Uric Acid AST ALT Lactate Dehydrogenase Blood Type A POSITIVE Antibody Screen Negative 08/24/16 08/24/16 19:16 22:10 WBC RBC Hgb Hct MCV MCH MCHC RDW Plt Count Creatinine Estimated GFR POC Glucose 161 H 145 H Uric Acid AST ALT Lactate Dehydrogenase Blood Type Antibody Screen
[2016-08-25] MEDS: NORMODYNE PO SCH ×3 (05:39→22:48)
[2016-08-25] MEDS: LACTATED RINGERS 1,000 ML IV SCH ×2 (05:40→18:39)
--- NOTE | 2016-08-25 07:40 | Event Note ---
Date: 08/25/16 reviewed plan of care with patient: NPO and assessment by Dr. Porras this morning to determine if delivery is needed. Patient fully understands, all questions addressed. Patient reports "slight" PACE this AM, will give po Tylenol with sips of water. denies visual changes or epigastric pain. Orders given to RN to hold morning insulin to avoid hypoglycemia as patient is now NPO. RN will continue to check blood sugars q4h. FHT CAT 2 d/t one variable noted in fht with spontaneous return, tracing otherwise reassuring. pt denies ctx, cramping, leaking or bleeding and reports active movement.
[2016-08-25] MEDS: TYLENOL PO PRN (07:41)
[2016-08-25] MEDS: PROCARDIA XL PO SCH (09:58)
[2016-08-25] MEDS: PRENATAL VITAMIN PO SCH (09:58)
--- NOTE | 2016-08-25 11:23 | Progress Note ---
Assessment and Plan - Patient Problems (1) Diabetes in Current Visit: Yes Status: Acute Qualifiers: Diabetes in type: pre-existing, type 2 Trimester: third trimester Qualified Code(s): O24.113 - Pre-existing type 2 diabetes mellitus, in , third trimester Plan to address problem: -con't sliding scale for now as pt has been npo and in now just taking clear liquids and will restart regimen after she is eating regular diet again. (2) uterine contractions in third trimester, antepartum Current Visit: Yes Status: Acute (3) Chronic hypertension with superimposed pre-eclampsia Current Visit: Yes Status: Acute Plan to address problem: -BP improved with iv meds -expectant management -delivery planned for 34 wks on 08/27/16 (4) 33 weeks gestation of Diagnosis Date: 08/23/16 Current Visit: Yes Status: Acute Subjective - Subjective Date of service: 08/25/16 Principal diagnosis: IUP@33 5/7wga, CHTN w/ PreE, DM Interval history: Pt states she did have headache earlier that is responding to the tylenol at time I was at [facility] at 0830. Pt advised that if bps are improved with meds we will con't observation with plan for delivery at 34 weeks. However, if there are changes in her status or the status of the baby, then delivery will been sooner. BPs responding to IV hydralazine and po procardia and are in mild range at this time. Will allow pt to eat and con't expectant management. Patient reports: movement normal, no new complaints, no contractions ( denies PACE, visual changes or RUQ pain) Objective - Vital Signs Vital Signs: Vital Signs - 12hr 08/25/16 08/25/16 08/25/16 00:16 00:33 01:16 Temperature 98.2 F Pulse Rate 85 82 Pulse Rate [ From Monitor] Respiratory 20 Rate Blood Pressure 148/69 135/62 Blood Pressure [Left Arm] O2 Sat by Pulse Oximetry 08/25/16 08/25/16 08/25/16 02:16 02:32 02:44 Temperature Pulse Rate 78 65 69 Pulse Rate [ From Monitor] Respiratory Rate Blood Pressure 145/63 168/77 166/77 Blood Pressure [Left Arm] O2 Sat by Pulse Oximetry 08/25/16 08/25/16 08/25/16 02:55 03:15 03:21 Temperature Pulse Rate 69 65 67 Pulse Rate [ From Monitor] Respiratory Rate Blood Pressure 180/84 157/77 156/79 Blood Pressure [Left Arm] O2 Sat by Pulse Oximetry 08/25/16 08/25/16 08/25/16 03:26 03:31 03:36 Temperature Pulse Rate 71 77 71 Pulse Rate [ From Monitor] Respiratory Rate Blood Pressure 156/74 169/74 165/72 Blood Pressure [Left Arm] O2 Sat by Pulse Oximetry 08/25/16 08/25/16 08/25/16 03:41 03:46 04:30 Temperature 98.3 F Pulse Rate 73 77 Pulse Rate [ From Monitor] Respiratory 20 Rate Blood Pressure 151/67 153/70 Blood Pressure [Left Arm] O2 Sat by Pulse Oximetry 08/25/16 08/25/16 08/25/16 05:00 05:05 05:31 Temperature Pulse Rate 66 64 67 Pulse Rate [ From Monitor] Respiratory Rate Blood Pressure 171/83 170/87 156/74 Blood Pressure [Left Arm] O2 Sat by Pulse Oximetry 08/25/16 08/25/16 08/25/16 05:39 05:55 06:00 Temperature Pulse Rate 71 74 Pulse Rate [ From Monitor] Respiratory Rate Blood Pressure 156/74 Blood Pressure [Left Arm] O2 Sat by Pulse 97 97 Oximetry 08/25/16 08/25/16 08/25/16 06:05 06:10 07:05 Temperature Pulse Rate 72 75 72 Pulse Rate [ From Monitor] Respiratory Rate Blood Pressure 171/81 146/68 Blood Pressure [Left Arm] O2 Sat by Pulse 96 95 Oximetry 08/25/16 08/25/16 08/25/16 07:37 07:38 08:08 Temperature 98.4 F Pulse Rate 74 73 72 Pulse Rate [ 71 From Monitor] Respiratory 18 Rate Blood Pressure 166/77 175/80 Blood Pressure 166/77 [Left Arm] O2 Sat by Pulse 96 Oximetry 08/25/16 08/25/16 08/25/16 08:37 08:41 09:07 Temperature Pulse Rate 71 71 76 Pulse Rate [ From Monitor] Respiratory Rate Blood Pressure 152/72 152/72 152/71 Blood Pressure [Left Arm] O2 Sat by Pulse Oximetry 08/25/16 08/25/16 08/25/16 09:38 09:59 10:29 Temperature Pulse Rate 74 71 71 Pulse Rate [ From Monitor] Respiratory Rate Blood Pressure 161/78 164/77 167/78 Blood Pressure [Left Arm] O2 Sat by Pulse Oximetry 08/25/16 10:59 Temperature Pulse Rate 74 Pulse Rate [ From Monitor] Respiratory Rate Blood Pressure 152/77 Blood Pressure [Left Arm] O2 Sat by Pulse Oximetry - Exam Lungs: Normal air movement FHR: category 1 Extremities: normal Deep Tendon Reflex Grade: Normal +2 - Labs Labs: Abnormal Labs 08/21/16 08/21/16 08/22/16 17:45 17:45 06:19 MCH 27 L RDW 16.0 H Creatinine 0.6 L POC Glucose 106 H Urine Creatinine Ur Total Protein 24 Hr Urine Total Protein 08/22/16 08/22/16 08/22/16 11:22 16:51 20:00 MCH RDW Creatinine POC Glucose 177 H 222 H Urine Creatinine 62.9 H Ur Total Protein 24 Hr 728.00 H Urine Total Protein 26 H 08/22/16 08/23/16 08/23/16 20:12 10:32 14:37 MCH RDW Creatinine POC Glucose 238 H 149 H 260 H Urine Creatinine Ur Total Protein 24 Hr Urine Total Protein 08/23/16 08/23/16 08/24/16 19:49 22:24 05:49 MCH RDW Creatinine POC Glucose 225 H 201 H 111 H Urine Creatinine Ur Total Protein 24 Hr Urine Total Protein 08/24/16 08/24/16 08/24/16 08:53 08:53 10:09 MCH 27 L RDW 16.1 H Creatinine 0.6 L POC Glucose 159 H Urine Creatinine Ur Total Protein 24 Hr Urine Total Protein 08/24/16 08/24/16 08/24/16 13:42 19:16 22:10 MCH RDW Creatinine POC Glucose 173 H 161 H 145 H Urine Creatinine Ur Total Protein 24 Hr Urine Total Protein Laboratory Results - last 24 hr 08/24/16 08/24/16 08/24/16 13:42 19:16 22:10 POC Glucose 173 H 161 H 145 H 08/25/16 06:14 POC Glucose 79
--- NOTE | 2016-08-25 15:53 | Progress Note ---
Assessment and Plan 1. 33+5 weeks 2. Chronic HTN with superimposed pre-eclampsia 3. Type II diabetes, poor control (HgA1c on 07/18/16 was 9.6%) 4. contractions 5. Previous c/s 6. Obesity Recommendations 1. Continue present BP meds, IV meds as needed 2. Continue insulin and ss insulin 3. Immediate delivery if BPs uncontrolled or persistent headache; otherwise delivery on Sunday at 34 weeks Subjective - Subjective Principal diagnosis: IUP@33 5/7wga, CHTN w/ PreE, DM Interval history: Reports she is now having a headache again. Denies visual changes, chest pain, SOB or RUQ pain. Good movement. Patient reports: movement normal, no new complaints, no contractions ( denies PACE, visual changes or RUQ pain) Objective - Vital Signs Vital Signs: Vital Signs - 12hr 08/25/16 08/25/16 08/25/16 04:30 05:00 05:05 Temperature 98.3 F Pulse Rate 66 64 Pulse Rate [ From Monitor] Respiratory 20 Rate Blood Pressure 171/83 170/87 Blood Pressure [Left Arm] O2 Sat by Pulse Oximetry 08/25/16 08/25/16 08/25/16 05:31 05:39 05:55 Temperature Pulse Rate 67 71 Pulse Rate [ From Monitor] Respiratory Rate Blood Pressure 156/74 156/74 Blood Pressure [Left Arm] O2 Sat by Pulse 97 Oximetry 08/25/16 08/25/16 08/25/16 06:00 06:05 06:10 Temperature Pulse Rate 74 72 75 Pulse Rate [ From Monitor] Respiratory Rate Blood Pressure 171/81 Blood Pressure [Left Arm] O2 Sat by Pulse 97 96 95 Oximetry 08/25/16 08/25/16 08/25/16 07:05 07:37 07:38 Temperature 98.4 F Pulse Rate 72 74 73 Pulse Rate [ 71 From Monitor] Respiratory 18 Rate Blood Pressure 146/68 166/77 Blood Pressure 166/77 [Left Arm] O2 Sat by Pulse 96 Oximetry 08/25/16 08/25/16 08/25/16 08:08 08:37 08:41 Temperature Pulse Rate 72 71 71 Pulse Rate [ From Monitor] Respiratory Rate Blood Pressure 175/80 152/72 152/72 Blood Pressure [Left Arm] O2 Sat by Pulse Oximetry 08/25/16 08/25/16 08/25/16 09:07 09:38 09:59 Temperature Pulse Rate 76 74 71 Pulse Rate [ From Monitor] Respiratory Rate Blood Pressure 152/71 161/78 164/77 Blood Pressure [Left Arm] O2 Sat by Pulse Oximetry 08/25/16 08/25/16 08/25/16 10:29 10:59 12:00 Temperature Pulse Rate 71 74 72 Pulse Rate [ From Monitor] Respiratory Rate Blood Pressure 167/78 152/77 148/72 Blood Pressure [Left Arm] O2 Sat by Pulse Oximetry 08/25/16 08/25/16 08/25/16 12:31 13:00 13:30 Temperature Pulse Rate 88 85 86 Pulse Rate [ From Monitor] Respiratory Rate Blood Pressure 169/85 138/69 146/77 Blood Pressure [Left Arm] O2 Sat by Pulse Oximetry 08/25/16 08/25/16 08/25/16 14:30 14:54 15:00 Temperature Pulse Rate 80 80 71 Pulse Rate [ From Monitor] Respiratory Rate Blood Pressure 141/68 141/68 178/86 Blood Pressure [Left Arm] O2 Sat by Pulse Oximetry 08/25/16 15:31 Temperature Pulse Rate 69 Pulse Rate [ From Monitor] Respiratory Rate Blood Pressure 178/89 Blood Pressure [Left Arm] O2 Sat by Pulse Oximetry - Exam Abdomen: Present: normal appearance, soft Uterine Contraction Monitor Mode: Palpation Extremities: edema - Labs Labs: Abnormal Labs 08/21/16 08/21/16 08/22/16 17:45 17:45 06:19 MCH 27 L RDW 16.0 H Creatinine 0.6 L POC Glucose 106 H Urine Creatinine Ur Total Protein 24 Hr Urine Total Protein 08/22/16 08/22/16 08/22/16 11:22 16:51 20:00 MCH RDW Creatinine POC Glucose 177 H 222 H Urine Creatinine 62.9 H Ur Total Protein 24 Hr 728.00 H Urine Total Protein 26 H 08/22/16 08/23/16 08/23/16 20:12 10:32 14:37 MCH RDW Creatinine POC Glucose 238 H 149 H 260 H Urine Creatinine Ur Total Protein 24 Hr Urine Total Protein 08/23/16 08/23/16 08/24/16 19:49 22:24 05:49 MCH RDW Creatinine POC Glucose 225 H 201 H 111 H Urine Creatinine Ur Total Protein 24 Hr Urine Total Protein 01/08/24/16 08/24/16 08:53 08:53 10:09 MCH 27 L RDW 16.1 H Creatinine 0.6 L POC Glucose 159 H Urine Creatinine Ur Total Protein 24 Hr Urine Total Protein 08/24/16 08/24/16 08/24/16 13:42 19:16 22:10 MCH RDW Creatinine POC Glucose 173 H 161 H 145 H Urine Creatinine Ur Total Protein 24 Hr Urine Total Protein 08/25/16 14:40 MCH RDW Creatinine POC Glucose 188 H Urine Creatinine Ur Total Protein 24 Hr Urine Total Protein Laboratory Results - last 24 hr 08/24/16 08/24/16 08/25/16 19:16 22:10 06:14 POC Glucose 161 H 145 H 79 08/25/16 08/25/16 11:59 14:40 POC Glucose 104 188 H
--- NOTE | 2016-08-25 17:46 | Event Note ---
Date: 08/25/16 BP remains in mild range at this time. Will cont close observation at this time.
[2016-08-26] MEDS: NORMODYNE PO SCH ×3 (06:39→22:36)
[2016-08-26] MEDS: APRESOLINE IV PRN (06:43)
--- NOTE | 2016-08-26 08:18 | Progress Note ---
Assessment and Plan 1. Continue present BP meds, IV meds as needed 2. Continue insulin and ss insulin 3. Immediate delivery if BPs uncontrolled or persistent headache; Delivery scheduled for tomorrow at 34 weeks - Patient Problems (1) 33 weeks gestation of Diagnosis Date: 08/23/16 Current Visit: Yes Status: Acute (2) Chronic hypertension with superimposed pre-eclampsia Current Visit: Yes Status: Acute (3) Maternal care due to low transverse uterine scar from previous delivery Current Visit: Yes Status: Acute Plan to address problem: Questions were encouraged and answered. Consents were reviewed and signed. NICU to discuss plan of care for after delivery. She voiced understanding and desires to proceed with delivery with sterilization tomorrow. (4) Sterilization Current Visit: Yes Status: Acute Plan to address problem: Patient desires permanent sterilization. She declined long acting reversible contraceptives. She understands the risks of the surgery include bleeding infection possible damage to bowel bladder or ureters. She desires salpingectomy for sterilization. She understands that this surgery would make her permanently sterile. She also understands the approximate 1% failure rate. The patient understands all the above and desires to proceed. (5) Diabetes in Current Visit: Yes Status: Acute Qualifiers: Diabetes in type: pre-existing, type 2 Trimester: third trimester Qualified Code(s): O24.113 - Pre-existing type 2 diabetes mellitus, in , third trimester (6) BMI 38.0-38.9,adult Current Visit: Yes Status: Acute Subjective - Subjective Date of service: 08/26/16 Principal diagnosis: IUP@33 6/7wga, CHTN w/ PreE, DM Patient reports: movement normal, no new complaints, no loss of fluid ( Denies PACE, visula changes or RUQ pain), no vaginal bleeding, no contractions ( denies PACE, visual changes or RUQ pain) Objective - Vital Signs Vital Signs: Vital Signs - 12hr 08/25/16 08/25/16 08/25/16 20:30 21:00 21:30 Temperature Pulse Rate 75 80 73 Pulse Rate [ From Monitor] Respiratory Rate Blood Pressure 145/70 136/70 138/65 Blood Pressure [Left Arm] O2 Sat by Pulse Oximetry 08/25/16 08/25/16 08/26/16 22:01 22:15 00:00 Temperature 98.3 F 97.6 F Pulse Rate 74 Pulse Rate [ From Monitor] Respiratory 20 18 Rate Blood Pressure 153/72 Blood Pressure [Left Arm] O2 Sat by Pulse Oximetry 08/26/16 08/26/16 08/26/16 04:00 04:14 04:33 Temperature 97.1 F L Pulse Rate 68 66 Pulse Rate [ From Monitor] Respiratory 18 Rate Blood Pressure 155/73 159/78 Blood Pressure [Left Arm] O2 Sat by Pulse Oximetry 08/26/16 08/26/16 08/26/16 05:01 05:31 06:01 Temperature Pulse Rate 66 68 66 Pulse Rate [ From Monitor] Respiratory Rate Blood Pressure 156/78 160/77 161/77 Blood Pressure [Left Arm] O2 Sat by Pulse Oximetry 08/26/16 08/26/16 08/26/16 06:30 07:00 07:30 Temperature Pulse Rate 69 72 77 Pulse Rate [ From Monitor] Respiratory Rate Blood Pressure 175/80 149/71 139/69 Blood Pressure [Left Arm] O2 Sat by Pulse Oximetry 08/26/16 08/26/16 08/26/16 07:39 07:40 08:01 Temperature 97.2 F L Pulse Rate 81 80 Pulse Rate [ 81 From Monitor] Respiratory 18 Rate Blood Pressure 131/63 138/66 Blood Pressure 131/63 [Left Arm] O2 Sat by Pulse Oximetry 08/26/16 08/26/16 08:03 08:08 Temperature Pulse Rate 81 88 Pulse Rate [ From Monitor] Respiratory Rate Blood Pressure Blood Pressure [Left Arm] O2 Sat by Pulse 98 98 Oximetry - Exam Breasts: deferred Cardiovascular: Regular rate Lungs: Clear to auscultation, Normal air movement Abdomen: Present: normal appearance Uterus: Present: normal FHR comments: Difficulty to monitor, overall reassuring Uterine Contraction Monitor Mode: External Uterine Contraction Pattern: Absent Extremities: normal Deep Tendon Reflex Grade: Normal +2 - Labs Labs: Abnormal Labs 08/21/16 08/21/16 08/22/16 17:45 17:45 06:19 MCH 27 L RDW 16.0 H Creatinine 0.6 L POC Glucose 106 H Urine Creatinine Ur Total Protein 24 Hr Urine Total Protein 08/22/16 08/22/16 08/22/16 11:22 16:51 20:00 MCH RDW Creatinine POC Glucose 177 H 222 H Urine Creatinine 62.9 H Ur Total Protein 24 Hr 728.00 H Urine Total Protein 26 H 08/22/16 08/23/16 08/23/16 20:12 10:32 14:37 MCH RDW Creatinine POC Glucose 238 H 149 H 260 H Urine Creatinine Ur Total Protein 24 Hr Urine Total Protein 08/23/16 08/23/16 08/24/16 19:49 22:24 05:49 MCH RDW Creatinine POC Glucose 225 H 201 H 111 H Urine Creatinine Ur Total Protein 24 Hr Urine Total Protein 08/24/16 08/24/16 08/24/16 08:53 08:53 10:09 MCH 27 L RDW 16.1 H Creatinine 0.6 L POC Glucose 159 H Urine Creatinine Ur Total Protein 24 Hr Urine Total Protein 08/24/16 08/24/16 08/24/16 13:42 19:16 22:10 MCH RDW Creatinine POC Glucose 173 H 161 H 145 H Urine Creatinine Ur Total Protein 24 Hr Urine Total Protein 08/25/16 08/25/16 08/25/16 14:40 16:56 19:04 MCH RDW Creatinine POC Glucose 188 H 123 H 180 H Urine Creatinine Ur Total Protein 24 Hr Urine Total Protein 08/26/16 06:12 MCH RDW Creatinine POC Glucose 58 L Urine Creatinine Ur Total Protein 24 Hr Urine Total Protein Laboratory Results - last 24 hr 08/25/16 08/25/16 08/25/16 11:59 14:40 16:56 POC Glucose 104 188 H 123 H 08/25/16 08/26/16 19:04 06:12 POC Glucose 180 H 58 L
[2016-08-26] MEDS: LACTATED RINGERS 1,000 ML IV SCH (08:36)
[2016-08-26] MEDS: PROCARDIA XL PO SCH (09:58)
[2016-08-26] MEDS: PRENATAL VITAMIN PO SCH (09:58)
[2016-08-27] MEDS ORDERED: REGLAN IV ONE (05:30)
[2016-08-27] MEDS ORDERED: LACTATED RINGERS 1,500 ML IV NR (05:30)
[2016-08-27] MEDS ORDERED: CLEOCIN 600 MG/50 mL 50 ML IV NR (05:30)
[2016-08-27] MEDS ORDERED: PEPCID IV ONE (05:30)
[2016-08-27] MEDS ORDERED: GARAMYCIN 160 MG in NACL 0.9% 100 ML IV SCH (05:30)
[2016-08-27] MEDS ORDERED: PITOCin/NS 20 UNIT/1000ML DRIP 1,000 ML IV NR (05:30)
[2016-08-27] MEDS ORDERED: BICITRA PO ONE (05:30)
[2016-08-27 05:46] LABS: Basophils % (Auto) 0.5 % (0.0-1.8); Eosinophils % (Auto) 0.9 % (0.0-4.3); Hematocrit 34.7 % (30.3-42.9); Hemoglobin 11.2 gm/dl (10.1-14.3); Mean Corpuscular HGB Conc 32 % (30-34); Mean Corpuscular Hemoglobin 27 pg (28-32); Mean Corpuscular Volume 82 fl (79-97); Platelet Count 223 K/mm3 (140-440); Red Blood Count 4.22 M/mm3 (3.65-5.03); Red Cell Distribution Width 16.2 % (13.2-15.2); White Blood Count 10.6 K/mm3 (4.5-11.0)
[2016-08-27] MEDS: NORMODYNE PO SCH ×2 (06:14→21:00)
--- NOTE | 2016-08-27 07:39 | Progress Note ---
Assessment and Plan - Patient Problems (1) 34 weeks gestation of Current Visit: Yes Status: Acute (2) Chronic hypertension with superimposed pre-eclampsia Current Visit: Yes Status: Acute (3) Maternal care due to low transverse uterine scar from previous delivery Current Visit: Yes Status: Acute (4) Sterilization Current Visit: Yes Status: Acute (5) Diabetes in Current Visit: Yes Status: Acute Qualifiers: Diabetes in type: pre-existing, type 2 Trimester: third trimester Qualified Code(s): O24.113 - Pre-existing type 2 diabetes mellitus, in , third trimester (6) BMI 38.0-38.9,adult Current Visit: Yes Status: Acute Subjective - Subjective Date of service: 08/27/16 Principal diagnosis: IUP@34 wga, CHTN w/ PreE, DM Interval history: Patient being prepped for surgery. Questions encouraged and answered. Patient has been reassessed/reevaluated/re-examined. H&P has been reviewed. No interval changes. She desires to proceed with c/s with bilateral salpingectomy. Patient reports: movement normal, no new complaints, no loss of fluid ( Denies PACE, visula changes or RUQ pain), no vaginal bleeding, no contractions ( denies PACE, visual changes or RUQ pain) Objective - Vital Signs Vital Signs: Vital Signs - 12hr 08/26/16 08/26/16 08/26/16 19:52 19:57 19:58 Temperature Pulse Rate 73 77 74 Blood Pressure 151/72 O2 Sat by Pulse 97 99 Oximetry 08/26/16 08/26/16 08/26/16 20:00 20:02 20:07 Temperature 98.0 F Pulse Rate 72 71 Blood Pressure 141/65 O2 Sat by Pulse 98 98 Oximetry 08/26/16 08/26/16 08/26/16 20:12 20:17 20:22 Temperature Pulse Rate 76 80 79 Blood Pressure O2 Sat by Pulse 98 98 98 Oximetry 08/26/16 08/26/16 08/26/16 20:27 20:30 20:32 Temperature Pulse Rate 69 80 76 Blood Pressure 141/64 O2 Sat by Pulse 98 97 Oximetry 08/26/16 08/26/16 08/26/16 20:37 20:42 20:47 Temperature Pulse Rate 71 72 71 Blood Pressure O2 Sat by Pulse 98 98 99 Oximetry 08/26/16 08/26/16 08/26/16 20:52 20:57 21:11 Temperature Pulse Rate 68 72 84 Blood Pressure O2 Sat by Pulse 98 97 96 Oximetry 08/26/16 08/26/16 08/26/16 21:16 21:21 21:26 Temperature Pulse Rate 68 66 71 Blood Pressure O2 Sat by Pulse 98 98 98 Oximetry 08/26/16 08/26/16 08/26/16 21:31 21:32 21:37 Temperature Pulse Rate 75 80 81 Blood Pressure 156/71 O2 Sat by Pulse 98 97 Oximetry 08/26/16 08/26/16 08/26/16 21:42 21:47 21:52 Temperature Pulse Rate 74 63 73 Blood Pressure O2 Sat by Pulse 98 98 97 Oximetry 08/26/16 08/26/16 08/26/16 21:57 22:00 22:01 Temperature Pulse Rate 64 65 62 Blood Pressure 162/72 O2 Sat by Pulse 99 93 Oximetry 08/26/16 08/26/16 08/26/16 22:02 22:07 22:36 Temperature Pulse Rate 62 65 68 Blood Pressure 169/80 O2 Sat by Pulse 98 98 Oximetry 08/26/16 08/26/16 08/26/16 22:39 22:40 22:42 Temperature Pulse Rate 66 70 65 Blood Pressure 169/80 174/77 O2 Sat by Pulse 94 94 Oximetry 08/26/16 08/26/16 08/26/16 22:45 22:50 22:55 Temperature Pulse Rate 63 65 64 Blood Pressure O2 Sat by Pulse 98 98 98 Oximetry 08/26/16 08/26/16 08/26/16 23:00 23:01 23:05 Temperature Pulse Rate 66 69 71 Blood Pressure 161/78 O2 Sat by Pulse 97 93 96 Oximetry 08/26/16 08/26/16 08/26/16 23:10 23:15 23:25 Temperature Pulse Rate 71 69 85 Blood Pressure O2 Sat by Pulse 97 97 96 Oximetry 08/26/16 08/26/16 08/26/16 23:30 23:31 23:35 Temperature Pulse Rate 73 73 75 Blood Pressure 158/79 O2 Sat by Pulse 92 97 Oximetry 08/26/16 08/26/16 08/26/16 23:40 23:45 23:50 Temperature Pulse Rate 72 75 74 Blood Pressure O2 Sat by Pulse 97 97 97 Oximetry 08/26/16 08/27/16 08/27/16 23:55 00:00 00:01 Temperature Pulse Rate 72 79 86 Blood Pressure O2 Sat by Pulse 97 98 93 Oximetry 08/27/16 08/27/16 08/27/16 00:02 00:05 00:12 Temperature Pulse Rate 86 77 72 Blood Pressure 164/79 164/86 O2 Sat by Pulse 96 99 Oximetry 08/27/16 08/27/16 08/27/16 00:14 00:16 00:17 Temperature Pulse Rate 71 69 68 Blood Pressure 164/86 162/84 O2 Sat by Pulse 98 Oximetry 08/27/16 08/27/16 08/27/16 00:22 00:27 00:30 Temperature Pulse Rate 70 70 76 Blood Pressure O2 Sat by Pulse 98 97 92 Oximetry 08/27/16 08/27/16 08/27/16 00:31 00:32 00:37 Temperature Pulse Rate 76 79 71 Blood Pressure 163/75 O2 Sat by Pulse 96 97 Oximetry 08/27/16 08/27/16 08/27/16 00:42 00:47 00:52 Temperature Pulse Rate 69 78 72 Blood Pressure O2 Sat by Pulse 97 95 96 Oximetry 08/27/16 08/27/16 08/27/16 00:57 01:00 01:01 Temperature Pulse Rate 75 73 71 Blood Pressure 159/78 O2 Sat by Pulse 96 92 Oximetry 08/27/16 08/27/16 08/27/16 01:02 01:07 01:12 Temperature Pulse Rate 74 71 71 Blood Pressure O2 Sat by Pulse 97 97 97 Oximetry 08/27/16 08/27/16 08/27/16 01:17 01:22 01:27 Temperature Pulse Rate 71 69 71 Blood Pressure O2 Sat by Pulse 97 97 97 Oximetry 08/27/16 08/27/16 08/27/16 01:30 01:31 01:32 Temperature Pulse Rate 79 72 70 Blood Pressure 179/79 O2 Sat by Pulse 93 98 Oximetry 08/27/16 08/27/16 08/27/16 01:37 01:42 01:44 Temperature Pulse Rate 71 71 76 Blood Pressure O2 Sat by Pulse 97 97 93 Oximetry 08/27/16 08/27/16 08/27/16 01:47 01:52 01:57 Temperature Pulse Rate 72 80 78 Blood Pressure O2 Sat by Pulse 97 93 94 Oximetry 08/27/16 08/27/16 08/27/16 02:01 02:02 02:07 Temperature Pulse Rate 82 71 69 Blood Pressure 163/81 O2 Sat by Pulse 97 97 Oximetry 08/27/16 08/27/16 08/27/16 02:31 03:01 03:42 Temperature Pulse Rate 72 74 76 Blood Pressure 167/76 167/79 O2 Sat by Pulse 97 Oximetry 08/27/16 08/27/16 08/27/16 03:47 03:52 03:57 Temperature Pulse Rate 67 68 66 Blood Pressure O2 Sat by Pulse 97 97 97 Oximetry 08/27/16 08/27/16 08/27/16 04:02 04:07 04:12 Temperature Pulse Rate 69 67 68 Blood Pressure O2 Sat by Pulse 97 97 97 Oximetry 08/27/16 08/27/16 08/27/16 04:17 04:22 04:27 Temperature Pulse Rate 67 68 67 Blood Pressure O2 Sat by Pulse 96 96 96 Oximetry 08/27/16 08/27/16 08/27/16 04:32 04:34 04:35 Temperature Pulse Rate 78 75 71 Blood Pressure 151/76 O2 Sat by Pulse 95 88 Oximetry 08/27/16 08/27/16 08/27/16 04:37 04:39 07:15 Temperature Pulse Rate 67 73 73 Blood Pressure 152/83 O2 Sat by Pulse 96 94 98 Oximetry 08/27/16 08/27/16 08/27/16 07:18 07:20 07:31 Temperature Pulse Rate 74 72 78 Blood Pressure 153/79 O2 Sat by Pulse 0 L 98 Oximetry - Labs Labs: Abnormal Labs 08/21/16 08/21/16 08/22/16 17:45 17:45 06:19 MCH 27 L RDW 16.0 H Lymph % (Auto) Wilkinson % (Auto) Seg Neutrophils % Seg Neutrophils # Creatinine 0.6 L POC Glucose 106 H Urine Creatinine Ur Total Protein 24 Hr Urine Total Protein 08/22/16 08/22/16 08/22/16 11:22 16:51 20:00 MCH RDW Lymph % (Auto) Wilkinson % (Auto) Seg Neutrophils % Seg Neutrophils # Creatinine POC Glucose 177 H 222 H Urine Creatinine 62.9 H Ur Total Protein 24 Hr 728.00 H Urine Total Protein 26 H 08/22/16 08/23/16 08/23/16 20:12 10:32 14:37 MCH RDW Lymph % (Auto) Wilkinson % (Auto) Seg Neutrophils % Seg Neutrophils # Creatinine POC Glucose 238 H 149 H 260 H Urine Creatinine Ur Total Protein 24 Hr Urine Total Protein 08/23/16 08/23/16 08/24/16 19:49 22:24 05:49 MCH RDW Lymph % (Auto) Wilkinson % (Auto) Seg Neutrophils % Seg Neutrophils # Creatinine POC Glucose 225 H 201 H 111 H Urine Creatinine Ur Total Protein 24 Hr Urine Total Protein 08/24/16 08/24/16 08/24/16 08:53 08:53 10:09 MCH 27 L RDW 16.1 H Lymph % (Auto) Wilkinson % (Auto) Seg Neutrophils % Seg Neutrophils # Creatinine 0.6 L POC Glucose 159 H Urine Creatinine Ur Total Protein 24 Hr Urine Total Protein 08/24/16 08/24/16 08/24/16 13:42 19:16 22:10 MCH RDW Lymph % (Auto) Wilkinson % (Auto) Seg Neutrophils % Seg Neutrophils # Creatinine POC Glucose 173 H 161 H 145 H Urine Creatinine Ur Total Protein 24 Hr Urine Total Protein 08/25/16 08/25/16 08/25/16 14:40 16:56 19:04 MCH RDW Lymph % (Auto) Wilkinson % (Auto) Seg Neutrophils % Seg Neutrophils # Creatinine POC Glucose 188 H 123 H 180 H Urine Creatinine Ur Total Protein 24 Hr Urine Total Protein 08/26/16 08/26/16 08/26/16 06:12 09:57 11:56 MCH RDW Lymph % (Auto) Wilkinson % (Auto) Seg Neutrophils % Seg Neutrophils # Creatinine POC Glucose 58 L 140 H 107 H Urine Creatinine Ur Total Protein 24 Hr Urine Total Protein 08/26/16 08/26/16 08/26/16 14:12 17:09 22:32 MCH RDW Lymph % (Auto) Wilkinson % (Auto) Seg Neutrophils % Seg Neutrophils # Creatinine POC Glucose 157 H 107 H 255 H Urine Creatinine Ur Total Protein 24 Hr Urine Total Protein 08/27/16 04:50 MCH 27 L RDW 16.2 H Lymph % (Auto) 13.3 L Wilkinson % (Auto) 7.7 H Seg Neutrophils % 77.6 H Seg Neutrophils # 8.2 H Creatinine POC Glucose Urine Creatinine Ur Total Protein 24 Hr Urine Total Protein Laboratory Results - last 24 hr 08/26/16 08/26/16 08/26/16 09:57 11:56 14:12 WBC RBC Hgb Hct MCV MCH MCHC RDW Plt Count Lymph % (Auto) Wilkinson % (Auto) Eos % (Auto) Baso % (Auto) Lymph # Wilkinson # Eos # Baso # Seg Neutrophils % Seg Neutrophils # POC Glucose 140 H 107 H 157 H Blood Type Antibody Screen 08/26/16 08/26/16 08/27/16 17:09 22:32 04:50 WBC 10.6 RBC 4.22 Hgb 11.2 Hct 34.7 MCV 82 MCH 27 L MCHC 32 RDW 16.2 H Plt Count 223 Lymph % (Auto) 13.3 L Wilkinson % (Auto) 7.7 H Eos % (Auto) 0.9 Baso % (Auto) 0.5 Lymph # 1.4 Wilkinson # 0.8 Eos # 0.1 Baso # 0.1 Seg Neutrophils % 77.6 H Seg Neutrophils # 8.2 H POC Glucose 107 H 255 H Blood Type Antibody Screen 08/27/16 08/27/16 04:50 05:45 WBC RBC Hgb Hct MCV MCH MCHC RDW Plt Count Lymph % (Auto) Wilkinson % (Auto) Eos % (Auto) Baso % (Auto) Lymph # Wilkinson # Eos # Baso # Seg Neutrophils % Seg Neutrophils # POC Glucose 96 Blood Type A POSITIVE Antibody Screen Negative
[2016-08-27] MEDS: LACTATED RINGERS 1,000 ML IV SCH ×2 (07:48→10:49)
--- NOTE | 2016-08-27 07:59 | Anesthesia Consultation ---
Anesthesia Consult and Med Hx - Airway Anesthetic Teeth Evaluation: Good (top left loose/broken tooth) Intubation Access Assessment: Probably Good - Pulmonary Exam CTA: Yes - Cardiac Exam Cardiac Exam: RRR - Pre-Operative Health Status ASA Pre-Surgery Classification: ASA3 Proposed Anesthetic Plan: General, Epidural (H?H 11.234/7 plt 223;pt desired infertility) - Pulmonary Hx Smoking: Yes (quit smoking in 2008) Hx Asthma: No COPD: No Hx Pneumonia: No - Cardiovascular System Hx Hypertension: Yes (preeclampsia at 34 wks) - Central Nervous System Hx Seizures: No Hx Psychiatric Problems: No - Endocrine Hx Renal Disease: No Hx End Stage Renal Disease: No Hx Insulin Dependent Diabetes: Yes (blod sugar 96 on 08/27 at 0700) Hx Hypothyroidism: No Hx Hyperthyroidism: No - Hematic Hx Anemia: No Hx Sickle Cell Disease: No - Other Systems Hx Alcohol Use: No
--- NOTE | 2016-08-27 08:03 | Anesthesia Day of Surgery ---
Anesthesia Day of Surgery - Day of Surgery Patient Examined: Yes Patient H&P Reviewed: Yes Patient is NPO: Yes
[2016-08-27] MEDS ORDERED: PHENERGAN PO PRN (08:09)
[2016-08-27] MEDS ORDERED: DILAUDID IV PRN (08:09)
[2016-08-27] MEDS ORDERED: ZOFRAN IV PRN (08:09)
[2016-08-27] MEDS ORDERED: NARCAN 0.4 MG/1 ML IV PRN ×2 (08:09→14:27)
[2016-08-27] MEDS ORDERED: PHENERGAN PR PRN (08:09)
[2016-08-27] MEDS ORDERED: MORPHINE ONE (08:11)
[2016-08-27] MEDS ORDERED: WATER FOR IRRIG STERILE IR ONE (08:15)
[2016-08-27] MEDS ORDERED: NACL 0.9% IR ONE (08:15)
[2016-08-27] MEDS ORDERED: HEMABATE IM ONE ×2 (08:58→11:27)
[2016-08-27] MEDS ORDERED: SODIUM CHLORIDE FLUSH SYRINGE 10 ML IV NR (09:00)
[2016-08-27] MEDS ORDERED: TORADOL ONE (09:07)
[2016-08-27] MEDS ORDERED: ZOFRAN ONE (09:07)
[2016-08-27] MEDS ORDERED: XYLOCAINE MPF 2% ONE (09:10)
[2016-08-27] MEDS ORDERED: DILAUDID ONE (09:41)
[2016-08-27] MEDS ORDERED: VERSED ONE (09:44)
[2016-08-27] MEDS ORDERED: NACL 0.9% 1000 ML 1,000 ML ONE (09:55)
[2016-08-27] MEDS ORDERED: MAGNESIUM SULFATE 40GM/1000ML 1,000 ML IV ONE (10:29)
[2016-08-27] MEDS ORDERED: MAGNESIUM SULFATE 4GM/100ML 100 ML IV ONE ×2 (10:29→10:42)
--- NOTE | 2016-08-27 10:53 | Operative Report ---
Operative Report Operative Report: Date of procedure: 08/27/2016 Pre-operative diagnosis: 1. Intrauterine at 34 weeks 2. Chronic hypertension with superimposed severe preeclampsia 3. Pre-gestational diabetes mellitus 4. Previous delivery desired repeat delivery 5. Desires bilateral salpingectomy for sterilization Post-operative diagnosis: 1. Intrauterine at 34 weeks 2. Chronic hypertension with superimposed severe preeclampsia 3. Pre-gestational diabetes mellitus 4. Previous delivery desired repeat delivery 5. Desires bilateral salpingectomy for sterilization Procedure name(s): 1. Low transverse section with midline vertical extension 2. Bilateral salpingectomy Surgeon: Shannan Soto MD Investment Accounting Clerk: Shaneka Patrick CST Anesthesia: Spinal epidural Findings: Liveborn male infant. Weight 4 lbs. 15 oz. Apgars 9 at 1 minute 9 at 5 minutes. Multiple uterine fibroids. Grossly normal fallopian tubes and ovaries. Anesthesiologist: Rody Adams M.D. Complications: None EBL: 1000 mL Procedure: After risks, benefits, and complications and alternatives and consequences, were discussed with patient, and she voiced her understanding and desired to proceed. Patient was taken to the OR, where spinal epidural anesthesia was placed. She was then placed in the left lateral tilt position, and prepped and draped in the usual sterile fashion. After timeout was performed, and an appropriate level of anesthesia was noted, a Pfannenstiel incision was made and extended to the fascia. The fascia was incised and extended in a lateral direction. The overlying fascia was sharply dissected away from the underlying rectus muscles in the superior-inferior direction. The midline was entered bluntly. The vesicouterine fold was incised and with blunt and sharp dissection the bladder flap was created. A transverse incision was made in the lower uterine segment and extended in the superior lateral direction with finger fractionation. Clear fluid was noted. A midline vertical incision in the body of the uterus was performed to facilitate the delivery of the . The infant was delivered from the cephalic position with spontaneous cry and excellent tone. The cord was doubly clamped and cut. The 's mouth and nose were bulb suctioned. And the infant was given to the resuscitation team present. [Cord blood was obtained.] The placenta was manually extracted. The uterus was exteriorized and cleaned any products of conception and placental tissue. The incisions were reapproximated using 0 Vicryl in a running interlocking stitch. Hemostasis was obtained and the incision with 0 Vicryl with an interrupted [id number]. Grossly normal tubes and ovaries were noted. Once confirmation was obtained from the patient to proceed with sterilization, bilateral salpingectomy was performed in the usual fashion using 0 Vicryl. Tubes were sent to pathology. Tisseel and Surgicel was applied to the mesosalpinx on both sides. Once hemostasis was noted , the uterus was allowed back into the pelvic cavity. The pelvis was irrigated with warm normal saline. Attention was again turned to the areas of tubes where procedure was performed. Hemostasis was noted on both areas. Once hemostasis was noted, Tisseel and Surgicel were applied to the anterior surface of the incision. Once hemostasis was noted, attention was turned to the rectus muscles. Once hemostasis was noted, the fascia was reapproximated using 0 Vicryl in a simple running stitch. Once hemostasis was noted, the incision was irrigated with normal saline. The incision was reapproximated using 4-0 Vicryl in a subcuticular manner. Patient tolerated the procedure well she was taken to recovery room in stable condition. Counts were correct 3
[2016-08-27] MEDS ORDERED: MAGNESIUM SULFATE 40GM/1000ML 1,000 ML IV SCH (11:00)
[2016-08-27] MEDS: APRESOLINE IV PRN (11:12)
--- NOTE | 2016-08-27 12:18 | Post Anesthesia Evaluation ---
- Post Anesthesia Evaluation Patient Participated: Yes Airway Patent: Yes Stable Respiratory Function: Yes Nausea/Vomiting: No Temp > 96.8F: Yes Pain Manageable: Yes Adequeate Hydration: Yes Anesthesia Complications: No
[2016-08-27] MEDS ORDERED: MILK OF MAGNESIA PO PRN (14:27)
[2016-08-27] MEDS ORDERED: APRESOLINE IV PRN (14:27)
[2016-08-27] MEDS ORDERED: GARAMYCIN/NS 80 MG/100 ML 100 ML IV SCH ×2 (14:27→22:00)
[2016-08-27] MEDS ORDERED: PITOCin/NS 20 UNIT/1000ML DRIP 1,000 ML IV SCH (14:27)
[2016-08-27] MEDS ORDERED: NORMODYNE IV PRN (14:27)
[2016-08-27] MEDS ORDERED: SODIUM CHLORIDE FLUSH SYRINGE 10 ML IV SCH (14:27)
[2016-08-27] MEDS ORDERED: LANSINOH TP PRN (14:27)
[2016-08-27] MEDS ORDERED: D50W (25GM) IV PRN (14:27)
[2016-08-27] MEDS ORDERED: TUCKS PAD TP PRN (14:27)
[2016-08-27] MEDS ORDERED: TYLENOL PO PRN (14:27)
[2016-08-27] MEDS ORDERED: MYLICON PO PRN (14:27)
[2016-08-27] MEDS ORDERED: LACTATED RINGERS 1,000 ML IV SCH (15:27)
[2016-08-27] MEDS: TORADOL IV SCH ×2 (15:28→21:34)
[2016-08-27] MEDS: CLEOCIN 600 MG/50 mL 50 ML IV SCH (15:57)
[2016-08-27 20:38] LABS: Hematocrit 30.4 % (30.3-42.9); Hemoglobin 9.7 gm/dl (10.1-14.3)
[2016-08-28] MEDS: CLEOCIN 600 MG/50 mL 50 ML IV SCH
[2016-08-28] MEDS: TORADOL IV SCH ×2 (03:48→09:34)
[2016-08-28] MEDS ORDERED: BOOSTRIX IM ONE (06:00)
--- NOTE | 2016-08-28 06:52 | Progress Note ---
Assessment and Plan - Patient Problems (1) Diabetes in Current Visit: Yes Status: Acute Qualifiers: Diabetes in type: pre-existing, type 2 Trimester: third trimester Qualified Code(s): O24.113 - Pre-existing type 2 diabetes mellitus, in , third trimester Plan to address problem: Pt will advance to liquids this AM Will continue sliding scale insulin for now consulted with Report to /Sonya (2) Hypertension affecting in third trimester Current Visit: Yes Status: Acute Plan to address problem: BPs this AM 160-140/80-70 MGSO4 continues until 1100; last Mag level 5.7; pt w/o PACE, blurred vision, chest pain; A&O X 3 equal and strong grasp bilateral Urine out put adequate; clear yellow in bass bag Labetalol po continues as ordered (3) delivery delivered Diagnosis Date: 08/27/16 Current Visit: Yes Status: Acute Plan to address problem: Pt w/o complaint Desires to go to NICU to see her baby. BPs as noted above, FF below umb Lochia small Dressing D&I to be removed this AM. H&H 9.7/30.4, drop due to blood loss in surgery. No s/sx of anemia. PO iron. Doing well s/p repeat c/s w/tubal. top MGSO4 @ 1100. Encouraged ambulation and advance diet as tolerated. Consult with . Subjective - Subjective Date of service: 08/28/16 (pt w/o complaint; anxious to go see baby in NICU) Principal diagnosis: Day#1 s/p repeat c/s w/ tubal@34 wga, CHTN w/ PreE, DM Patient reports: voiding normally (clear yellow urine in bass bag), pain well controlled : in NICU Objective - Vital Signs Latest vital signs: Vital Signs Temp Pulse Pulse Resp BP BP Pulse Ox 08/28/16 04:18 18 08/28/16 04:03 98.2 F 66 18 140/77 08/28/16 03:48 18 08/28/16 00:30 97.8 F 68 20 122/68 08/27/16 22:20 97.6 F 66 20 141/80 08/27/16 22:04 18 08/27/16 21:00 67 140/80 08/27/16 20:00 97.4 F L 67 22 140/80 08/27/16 18:10 97.4 F L 72 18 128/78 08/27/16 15:54 97.5 F L 70 18 120/70 08/27/16 14:20 97.9 F 82 20 125/68 08/27/16 13:57 70 94 08/27/16 13:56 68 94 08/27/16 13:52 69 146/79 94 08/27/16 13:51 69 94 08/27/16 13:47 67 144/77 96 08/27/16 13:43 68 94 08/27/16 13:42 66 95 08/27/16 13:37 70 95 08/27/16 13:32 68 95 08/27/16 13:27 68 93 08/27/16 13:22 67 155/86 98 08/27/16 13:17 72 96 08/27/16 13:12 71 96 08/27/16 13:07 72 96 08/27/16 13:02 70 98 08/27/16 12:57 66 96 08/27/16 12:53 68 94 08/27/16 12:52 67 158/93 97 08/27/16 12:47 73 98 08/27/16 12:42 75 154/90 97 08/27/16 12:37 69 98 08/27/16 12:32 75 97 08/27/16 12:27 74 98 08/27/16 12:26 76 94 08/27/16 12:22 73 96 08/27/16 12:17 71 96 08/27/16 12:14 70 94 08/27/16 12:13 71 168/97 08/27/16 12:12 70 95 08/27/16 12:08 70 94 08/27/16 12:07 71 94 08/27/16 12:02 74 94 08/27/16 12:00 67 164/94 164/94 08/27/16 11:57 72 96 08/27/16 11:56 73 94 08/27/16 11:52 71 96 08/27/16 11:50 73 94 08/27/16 11:47 77 96 08/27/16 11:45 73 148/83 148/83 08/27/16 11:42 78 95 08/27/16 11:37 72 96 08/27/16 11:35 77 18 112/56 96 08/27/16 11:15 97.6 F 70 12 160/92 96 08/27/16 11:12 70 166/94 08/27/16 11:00 158/84 08/27/16 10:50 97.7 F 70 12 170/99 96 08/27/16 10:35 77 17 171/92 96 08/27/16 10:20 75 12 129/75 97 08/27/16 10:15 70 12 149/86 96 08/27/16 10:10 97.9 F 75 14 162/88 95 08/27/16 07:46 76 137/67 08/27/16 07:37 68 143/73 143/73 08/27/16 07:31 78 153/79 08/27/16 07:20 72 98 08/27/16 07:18 74 0 L 08/27/16 07:15 73 152/83 98 08/27/16 07:10 98.8 F 71 18 152/83 97 Intake and Output 08/27/16 08/27/16 08/28/16 14:59 22:59 06:59 Intake Total 1500 1740 1545 Output Total 022 048 9661 Balance 800 990 -1305 Intake: IV 8094 953 2482 Magnesium Sulfate 40Gm/ 250 1000ML 1,000 ml @ 2 GM/HR 50 mls/hr IV DIRECT [facility] Rx#:[id number] CLEOCIN 600 MG/50 mL 50 50 550 ML @ 100 mls/hr IV Q8H [facility] Rx#:[id number] Lactated Ringers 1,000 ml 300 875 @ 125 mls/hr IV DIRECT [facility] Rx#:[id number] Oral 300 Intake, Free Water 840 120 Output: Urine 371 910 2805 Indwelling Catheter 750 2850 Other: Total, Intake Amount 120 Total, Output Amount 250 900 Voiding Method Indwelling Catheter Indwelling Catheter # Voids Void 1 - Exam Breasts: Present: Cardiovascular: Present: Regular rate Lungs: Present: Normal air movement Abdomen: Present: normal appearance, soft, normal bowel sounds Uterus: Present: normal Extremities: Present: edema Deep Tendon Reflex Grade: Normal +2 Incision: Present: dry, intact, dressed - Labs Labs: Abnormal lab results 08/27/16 08/27/16 08/27/16 Range/Units 15:00 15:03 20:21 Hgb 9.7 L (10.1-14.3) gm/dl POC Glucose 134 H (70-105) Magnesium 4.0 H (1.7-2.3) mg/dL 08/27/16 08/27/16 08/28/16 Range/Units 20:21 21:20 03:41 Hgb (10.1-14.3) gm/dl POC Glucose 126 H (70-105) Magnesium 4.6 H 5.7 H (1.7-2.3) mg/dL 08/28/16 Range/Units 04:04 Hgb (10.1-14.3) gm/dl POC Glucose 111 H (70-105) Magnesium (1.7-2.3) mg/dL
[2016-08-28] MEDS: NORMODYNE PO SCH ×2 (08:44→16:30)
[2016-08-28] MEDS: NOVOLOG SUB-Q SCH ×2 (09:32→18:26)
[2016-08-28] MEDS: PROCARDIA XL PO SCH (09:34)
[2016-08-28] MEDS ORDERED: MOTRIN PO PRN (10:09)
[2016-08-28] MEDS ORDERED: TORADOL IV PRN (10:09)
[2016-08-28] MEDS ORDERED: FLUARIX QUAD 2016-2017(36 MOS+) IM ONE (12:00)
[2016-08-29] MEDS: NOVOLOG SUB-Q SCH ×5 (00:25→11:30)
[2016-08-29] MEDS: PERCOCET 5/325 PO PRN ×3 (00:26→21:47)
[2016-08-29] MEDS: NORMODYNE PO SCH ×4 (04:30→21:52)
--- NOTE | 2016-08-29 06:23 | Progress Note ---
Assessment and Plan - Patient Problems (1) Diabetes in Current Visit: No Status: Acute Qualifiers: Diabetes in type: pre-existing, type 2 Trimester: third trimester Qualified Code(s): O24.113 - Pre-existing type 2 diabetes mellitus, in , third trimester Plan to address problem: BS >300 last evening. Scheduled insulin orders done per pt's pre routine. aware Due to possible yeast on skin around incision Pt started on Fluconazole 200mg po QD Pt aware of all findings and agrees with treatment and voices understanding. (2) Hypertension affecting in third trimester Current Visit: No Status: Acute (3) delivery delivered Diagnosis Date: 08/27/16 Current Visit: Yes Status: Acute (4) Yeast infection of the skin Current Visit: Yes Status: Acute Subjective - Subjective Date of service: 08/29/16 (requested to room by pt) Principal diagnosis: Day#2 s/p repeat c/s w/ tubal@34 wga, CHTN w/ PreE, DM Patient reports: appetite normal, voiding normally, pain well controlled, ambulating normally : in NICU Objective - Vital Signs Latest vital signs: Vital Signs Temp Pulse Pulse Resp BP BP BP 08/29/16 04:30 71 154/76 08/29/16 04:25 99.0 F 77 20 148/69 08/28/16 23:50 98.9 F 79 20 142/65 08/28/16 20:05 87 157/86 08/28/16 16:30 128/68 08/28/16 16:05 99.7 F H 83 20 128/67 08/28/16 12:35 98.6 F 76 20 138/76 08/28/16 09:28 135/78 08/28/16 08:44 135/73 08/28/16 08:29 98.2 F 76 18 135/73 08/28/16 06:20 98.4 F 75 20 162/83 Intake and Output 08/28/16 08/28/16 08/29/16 14:59 22:59 06:59 Intake Total 620 480 240 Output Total 1500 Balance -880 480 240 Intake: IV 500 Magnesium Sulfate 40Gm/ 200 1000ML 1,000 ml @ 2 GM/HR 50 mls/hr IV DIRECT [facility] Rx#:[id number] Lactated Ringers 1,000 ml 300 @ 125 mls/hr IV DIRECT [facility] Rx#:[id number] Oral 120 480 240 Output: Urine 1500 Indwelling Catheter 1500 Other: Total, Intake Amount 120 240 240 Total, Output Amount 1500 # Voids Void 0 1 1 - Exam Breasts: Present: Cardiovascular: Present: Regular rate Lungs: Present: Normal air movement Abdomen: Present: normal appearance, normal bowel sounds Uterus: Present: normal, fundal height below umbilicus Extremities: Present: normal Deep Tendon Reflex Grade: Normal +2 Incision: Present: other (pt skin was sticking to its self where previous adhesive bandage had been. Area beneath is red, moist, painful, only a slight odor at this exam. This covers several areas on pt's abdomen from side to side and into the groin. Incision its self appears intact. Small amt of serosanguineous fluid noted Steri strips wet and loose removed.) - Labs Labs: Abnormal lab results 08/28/16 08/28/16 08/28/16 Range/Units 09:00 09:19 18:17 POC Glucose 197 H 300 H (70-105) Magnesium 5.6 H (1.7-2.3) mg/dL 08/29/16 08/29/16 Range/Units 00:16 05:41 POC Glucose 258 H 120 H (70-105) Magnesium (1.7-2.3) mg/dL
--- NOTE | 2016-08-29 08:37 | Event Note ---
Date: 08/29/16 Patient doing well this morning, no complaints other than those addressed in progress note by HAILY Le this morning. Made aware of changes to blood sugar monitoring (fasting and 2hPP.) Wound care will come assess skin around incision. Encouraged patient to shower and advance activity as tolerated today. Patient states she does not plan on pumping or - thus advised to begin wearing tight fitting bra and avoid any stimulation to breast. Continue current pathway.
[2016-08-29] MEDS ORDERED: DIFLUCAN PO SCH (10:00)
[2016-08-29] MEDS: PROCARDIA XL PO SCH (10:29)
--- NOTE | 2016-08-29 11:06 | Progress Note ---
Subjective Date of service: 08/29/16 Principal diagnosis: Day#2 s/p repeat c/s w/ tubal@34 wga, CHTN w/ PreE, DM Interval history: 2nd POD after Patient is in the bed, comfortable. Pain is well under control. MgSO4 infusion is completed. Ambulated well. No residual neurological deficit. No anesthesia complications Objective - Constitutional Vitals: Vital Signs - 12hr 08/28/16 08/29/16 08/29/16 23:50 04:25 04:30 Temperature 98.9 F 99.0 F Pulse Rate 71 Pulse Rate [ 79 77 From Monitor] Respiratory 20 20 Rate Blood Pressure 154/76 Blood Pressure [Left Arm] Blood Pressure 142/65 148/69 [Right Arm] 08/29/16 08/29/16 08:00 10:30 Temperature 99.5 F Pulse Rate 86 Pulse Rate [ 74 86 From Monitor] Respiratory 18 Rate Blood Pressure 151/82 Blood Pressure 151/82 [Left Arm] Blood Pressure 140/78 [Right Arm] - Labs CBC & Chem 7: 08/27/16 20:21 08/24/16 08:53 Labs: Abnormal lab results 08/28/16 08/29/16 08/29/16 Range/Units 18:17 00:16 05:41 POC Glucose 300 H 258 H 120 H (70-105)
[2016-08-29] MEDS ORDERED: NOVOLOG SUB-Q SCH (17:00)
[2016-08-30] MEDS: NOVOLOG SUB-Q SCH ×2 (08:10→13:15)
[2016-08-30] MEDS: NORMODYNE PO SCH ×2 (08:30→14:45)
[2016-08-30] MEDS: PROCARDIA XL PO SCH (10:00)
[2016-08-30 13:32] VITALS: BP 146/78
== END 2016-08-30 15:15 | disposition home health service (06) | DRG 765 ==
LOC: TRG 16:58 → LD 17:00 → TRG 18:00 → OBSVTOIN 18:00 → APU 08-27 08:35 → LD 08-27 11:34 → OB 08-27 14:00
PROVIDERS: ADMIT Obstetrics & Gynecology; ATTEND Obstetrics & Gynecology
PROC: 10D00Z1 Extraction of Products of Conception, Low, Open Approach (ICD-10-PCS; principal; 2016-08-27)
PROC: 0UT70ZZ Resection of Bilateral Fallopian Tubes, Open Approach (ICD-10-PCS; 2016-08-27)
DX: O34.211 Maternal care for low transverse scar from previous cesarean delivery (principal); O24.12 Pre-existing type 2 diabetes mellitus, in childbirth; O14.14 Severe pre-eclampsia complicating childbirth; O99.214 Obesity complicating childbirth; O98.83 Other maternal infectious and parasitic diseases complicating the puerperium; E11.9 Type 2 diabetes mellitus without complications; Z37.0 Single live birth; Z30.2 Encounter for sterilization; Z88.0 Allergy status to penicillin; Z68.38 Body mass index [BMI] 38.0-38.9, adult; O09.523 Supervision of elderly multigravida, third trimester; Z3A.34 34 weeks gestation of pregnancy
CPT/HCPCS: 36415; 76815; 76816; 76819; 81001; 82565; 82570; 82962; 83615; 83735; 84156; 84450; 84460; 84550; 85014; 85018; 85025; 85027; 86850; 86900; 86901; 88302; 88307; 90686; C9250; J0360; J0702; J1170; J1580; J1815; J1885; J2250; J2270; J2405; J2590; J2765; J3475; J7030; J7120

== ENCOUNTER 2016-09-21 13:48 | Inpatient (IN) | payer MEDICAID, OTHER ==
--- NOTE | 2016-09-21 14:59 | Emergency Department Report ---
ED General Adult HPI - General Chief complaint: High BP Stated complaint: BP ELEVATED Time Seen by Provider: 09/21/16 14:52 Source: patient Mode of arrival: Ambulatory Limitations: No Limitations - History of Present Illness Initial comments: 36-year-old female 3 weeks presents to the ED with elevated blood pressure and wound infection. Patient states that she still has pus draining from her scar. States that she has a home health nurse that changes the dressing. States that she took her last dose of Bactrim today which was a seven-day course. States that her blood pressure this morning was 188/125. States that it feels as if it had improved since taken her medication this morning. Denies chest pain, headache, shortness of breath. - Related Data Home Medications Medication Instructions Recorded Confirmed Last Taken Labetalol [Normodyne] 800 mg PO TID 04/12/16 08/23/16 08/23/16 Insulin NPH, Human [NovoLIN N] 10 unit SUB-Q QDI 08/23/16 08/23/16 08/23/16 Insulin NPH, Human [NovoLIN N] 20 unit SUB-Q QHS 08/23/16 08/23/16 08/23/16 Insulin Regular, Human 20 units SUB-Q QDI 08/23/16 08/23/16 08/23/16 Insulin Regular, Human 28 units SUB-Q BIDLS 08/23/16 08/23/16 08/23/16 NIFEdipine XL [Procardia Xl] 30 mg PO QDAY 08/23/16 08/23/16 08/23/16 Previous Rx's Medication Instructions Recorded Last Taken Type Ibuprofen [Motrin 800 MG tab] 800 mg PO TID PRN #30 tablet 08/27/16 Unknown Rx Lidocain2.5%/Prilocai2.5% [Emla] 5 gm TP ONCE #1 tube 08/27/16 Unknown Rx oxyCODONE /ACETAMINOPHEN [Percocet 1 - 2 tab PO Q4HR PRN #30 tablet 08/27/16 Unknown Rx 5/325 mg] Sulfamethoxazole/Trimethoprim 1 each PO BID #6 tablet 09/21/16 Unknown Rx [Bactrim DS TAB] Allergies Allergy/AdvReac Type Severity Reaction Status Date / Time Penicillins AdvReac Unknown Unknown Verified 04/11/16 16:09 ED Review of Systems ROS: Stated complaint: BP ELEVATED Other details as noted in HPI Constitutional: denies: chills, fever Eyes: denies: eye pain, eye discharge, vision change ENT: denies: ear pain, throat pain Respiratory: denies: cough, shortness of breath, wheezing Cardiovascular: denies: chest pain, palpitations Endocrine: no symptoms reported Gastrointestinal: denies: abdominal pain, nausea, diarrhea Genitourinary: denies: urgency, dysuria, discharge Musculoskeletal: denies: back pain, joint swelling, arthralgia Skin: denies: rash, lesions Neurological: denies: headache, weakness, paresthesias Psychiatric: denies: anxiety, depression Hematological/Lymphatic: denies: easy bleeding, easy bruising ED Past Medical Hx - Past Medical History Previous Medical History?: Yes Hx Hypertension: Yes (preeclampsia at 34 wks) Hx Congestive Heart Failure: No Hx Diabetes: No Hx Deep Vein Thrombosis: No Hx Renal Disease: No Hx Sickle Cell Disease: No Hx Seizures: No Hx Asthma: No Hx COPD: No Hx HIV: No - Surgical History Past Surgical History?: Yes Additional Surgical History: - Social History Smoking Status: Former Smoker Substance Use Type: Alcohol, Prescribed - Medications Home Medications: Home Medications Medication Instructions Recorded Confirmed Last Taken Type Labetalol [Normodyne] 800 mg PO TID 04/12/16 08/23/16 08/23/16 History Insulin NPH, Human [NovoLIN N] 10 unit SUB-Q QDI 08/23/16 08/23/16 08/23/16 History Insulin NPH, Human [NovoLIN N] 20 unit SUB-Q QHS 08/23/16 08/23/16 08/23/16 History Insulin Regular, Human 20 units SUB-Q QDI 08/23/16 08/23/16 08/23/16 History Insulin Regular, Human 28 units SUB-Q BIDLS 08/23/16 08/23/16 08/23/16 History NIFEdipine XL [Procardia Xl] 30 mg PO QDAY 08/23/16 08/23/16 08/23/16 History Ibuprofen [Motrin 800 MG tab] 800 mg PO TID PRN #30 tablet 08/27/16 Unknown Rx Lidocain2.5%/Prilocai2.5% [Emla] 5 gm TP ONCE #1 tube 01/29/17 Unknown Rx oxyCODONE /ACETAMINOPHEN [Percocet 1 - 2 tab PO Q4HR PRN #30 tablet 08/27/16 Unknown Rx 5/325 mg] Sulfamethoxazole/Trimethoprim 1 each PO BID #6 tablet 09/21/16 Unknown Rx [Bactrim DS TAB] ED Physical Exam - General Limitations: No Limitations General appearance: alert, in no apparent distress - Head Head exam: Present: atraumatic, normocephalic - Eye Eye exam: Present: normal appearance - ENT ENT exam: Present: mucous membranes moist - Neck Neck exam: Present: normal inspection - Respiratory Respiratory exam: Present: normal lung sounds bilaterally. Absent: respiratory distress - Cardiovascular Cardiovascular Exam: Present: regular rate, normal rhythm. Absent: systolic murmur, diastolic murmur, rubs, gallop - GI/Abdominal GI/Abdominal exam: Present: soft, normal bowel sounds - Extremities Exam Extremities exam: Present: normal inspection - Back Exam Back exam: Present: normal inspection - Neurological Exam Neurological exam: Present: alert, oriented X3 - Psychiatric Psychiatric exam: Present: normal affect, normal mood - Skin Skin exam: Present: warm, dry, intact, normal color, other (c section scar appears to be healing well. pus draining from where the gauze was inserted. no ertythema, swelling, ttp.). Absent: rash ED Course Vital Signs 09/21/16 14:04 Temperature 98.8 F Pulse Rate 82 Blood Pressure 152/93 O2 Sat by Pulse 100 Oximetry ED Medical Decision Making - Lab Data Vital Signs 09/21/16 14:04 Temperature 98.8 F Pulse Rate 82 Blood Pressure 152/93 O2 Sat by Pulse 100 Oximetry - Medical Decision Making patient resting comfortably. NAD at this time. BP is improved since this morning reading of 188/125. will add 3 more days of bactrim to finish at day 10. Critical care attestation.: If time is entered above; I have spent that time in minutes in the direct care of this critically ill patient, excluding procedure time. ED Disposition Clinical Impression: Elevated BP, section wound complication Disposition: DISCHARGED TO HOME OR SELFCARE Is pt being admited?: No Does the pt Need Aspirin: No Condition: Stable Prescriptions: Sulfamethoxazole/Trimethoprim [Bactrim DS TAB] 1 each PO BID #6 tablet Referrals: PRIMARY CARE, [Primary Care Provider] - 3-5 Days Forms: Work/School Release Form(ED) Time of Disposition: 14:58
--- NOTE | 2016-09-21 18:01 | Event Note ---
Date: 09/21/16 Pt presents with elevated bps at home of 180s/90s and had decrease in bp with taking medications. Pt bp still slightly elevated in ER but reports no headaches or blurry vision. I d/w PA obtaining PIH labs and if labs are normal will send pt home. However, will increase procardia to 60mg po q day from 30 mg q day. Pt does have appointment scheduled in the office on 09/25/16 and will keep with pt. However, if BPs are elevated (ie >106/105) and she has abnormal pre E labs will admit and monitor over night. Plan of care d/w ER provider and all questions were addressed and answered.
[2016-09-21 19:38] LABS: Basophils % (Auto) 0.7 % (0.0-1.8); Eosinophils % (Auto) 2.1 % (0.0-4.3); Hematocrit 33.2 % (30.3-42.9); Hemoglobin 10.6 gm/dl (10.1-14.3); Mean Corpuscular HGB Conc 32 % (30-34); Mean Corpuscular Volume 80 fl (79-97); Platelet Count 385 K/mm3 (140-440); Red Blood Count 4.13 M/mm3 (3.65-5.03); Red Cell Distribution Width 15.3 % (13.2-15.2); White Blood Count 9.2 K/mm3 (4.5-11.0)
[2016-09-21 19:48] LABS: Mean Corpuscular Hemoglobin 26 pg (28-32)
[2016-09-21 20:08] LABS: Bacteria,Urine 1+ /HPF (Negative); Bilirubin,Urine NEG (Negative); Blood,Urine NEG (Negative); Ketones,Urine NEG (Negative); Leukocyte Esterase,Urine LG (Negative); Mucus,Urine FEW /HPF; Nitrite,Urine NEG (Negative); Protein,Urine <15 mg/dL mg/dL (Negative); Urobilinogen,Urine < 2.0 mg/dL (<2.0)
[2016-09-21 20:27] LABS: Alanine Aminotransferase 23 units/L (7-56); Albumin 3.7 g/dL (3.9-5); Albumin/Globulin Ratio 0.9 %; Alkaline Phosphatase 85 units/L (35-129); Anion Gap 18 mmol/L; BUN/Creatinine Ratio 16.25; Bilirubin,Total 0.3 mg/dL (0.1-1.2); Blood Urea Nitrogen 13 mg/dL (7-17); Calcium 8.9 mg/dL (8.4-10.2); Carbon Dioxide 24 mmol/L (22-30); Chloride 98.7 mmol/L (98-107); Glucose 164 mg/dL (65-100); Potassium 4.8 mmol/L (3.6-5.0); Sodium 136 mmol/L (137-145); Total Protein 7.9 g/dL (6.3-8.2)
[2016-09-21] MEDS ORDERED: APRESOLINE IV ONE (21:31)
[2016-09-21] MEDS ORDERED: DULCOLAX PR PRN (21:38)
[2016-09-21] MEDS ORDERED: MILK OF MAGNESIA PO PRN (21:38)
[2016-09-21] MEDS ORDERED: ZOFRAN IV PRN (21:38)
[2016-09-21] MEDS ORDERED: MOTRIN PO PRN (21:38)
[2016-09-21] MEDS ORDERED: TYLENOL PO PRN (21:38)
--- NOTE | 2016-09-21 21:39 | Emergency Department Report ---
ED General Adult HPI - General Chief complaint: High BP Stated complaint: BP ELEVATED Time Seen by Provider: 09/21/16 14:52 Source: patient Mode of arrival: Ambulatory Limitations: No Limitations - History of Present Illness Initial comments: patient reports that she was seen in the ED earlier and was told to come back as her blood pressure was elevated and she is about 3 weeks post . Pt. denies any headaches, dizziness, chest pain, dysuria, abdominal pain or any other symptoms at this time. Dr. Porras is aware about the patient as she was called before patient came back again. Severity scale (0 -10): 0 Associated Symptoms: denies other symptoms. denies: confusion, chest pain, cough, diaphoresis, fever/chills, headaches, loss of appetite, malaise, nausea/ vomiting, rash, seizure, shortness of breath, syncope, weakness - Related Data Home Medications Medication Instructions Recorded Confirmed Last Taken Labetalol [Normodyne] 800 mg PO TID 04/12/16 08/23/16 08/23/16 Insulin NPH, Human [NovoLIN N] 10 unit SUB-Q QDI 08/23/16 08/23/16 08/23/16 Insulin NPH, Human [NovoLIN N] 20 unit SUB-Q QHS 08/23/16 08/23/16 08/23/16 Insulin Regular, Human 20 units SUB-Q QDI 08/23/16 08/23/16 08/23/16 Insulin Regular, Human 28 units SUB-Q BIDLS 08/23/16 08/23/16 08/23/16 NIFEdipine XL [Procardia Xl] 30 mg PO QDAY 08/23/16 08/23/16 08/23/16 Previous Rx's Medication Instructions Recorded Last Taken Type Ibuprofen [Motrin 800 MG tab] 800 mg PO TID PRN #30 tablet 08/27/16 Unknown Rx Lidocain2.5%/Prilocai2.5% [Emla] 5 gm TP ONCE #1 tube 08/27/16 Unknown Rx oxyCODONE /ACETAMINOPHEN [Percocet 1 - 2 tab PO Q4HR PRN #30 tablet 08/27/16 Unknown Rx 5/325 mg] Sulfamethoxazole/Trimethoprim 1 each PO BID #6 tablet 09/21/16 Unknown Rx [Bactrim DS TAB] Allergies Allergy/AdvReac Type Severity Reaction Status Date / Time Penicillins AdvReac Unknown Unknown Verified 04/11/16 16:09 ED Review of Systems ROS: Stated complaint: BP ELEVATED Other details as noted in HPI Constitutional: denies: chills, fever Eyes: denies: eye pain, eye discharge, vision change ENT: denies: ear pain, throat pain Respiratory: denies: cough, shortness of breath, wheezing Cardiovascular: denies: chest pain, palpitations Endocrine: no symptoms reported Gastrointestinal: denies: abdominal pain, nausea, diarrhea Genitourinary: denies: urgency, dysuria, discharge Musculoskeletal: denies: back pain, joint swelling, arthralgia Skin: denies: rash, lesions Neurological: denies: headache, weakness, paresthesias Psychiatric: denies: anxiety, depression Hematological/Lymphatic: denies: easy bleeding, easy bruising ED Past Medical Hx - Past Medical History Previous Medical History?: Yes Hx Hypertension: Yes (preeclampsia at 34 wks) Hx Congestive Heart Failure: No Hx Diabetes: No Hx Deep Vein Thrombosis: No Hx Renal Disease: No Hx Sickle Cell Disease: No Hx Seizures: No Hx Asthma: No Hx COPD: No Hx HIV: No - Surgical History Past Surgical History?: Yes Additional Surgical History: - Social History Smoking Status: Former Smoker Substance Use Type: Alcohol, Prescribed - Medications Home Medications: Home Medications Medication Instructions Recorded Confirmed Last Taken Type Labetalol [Normodyne] 800 mg PO TID 04/12/16 08/23/16 08/23/16 History Insulin NPH, Human [NovoLIN N] 10 unit SUB-Q QDI 08/23/16 08/23/16 08/23/16 History Insulin NPH, Human [NovoLIN N] 20 unit SUB-Q QHS 08/23/16 08/23/16 08/23/16 History Insulin Regular, Human 20 units SUB-Q QDI 08/23/16 08/23/16 08/23/16 History Insulin Regular, Human 28 units SUB-Q BIDLS 08/23/16 08/23/16 08/23/16 History NIFEdipine XL [Procardia Xl] 30 mg PO QDAY 08/23/16 08/23/16 08/23/16 History Ibuprofen [Motrin 800 MG tab] 800 mg PO TID PRN #30 tablet 08/27/16 Unknown Rx Lidocain2.5%/Prilocai2.5% [Emla] 5 gm TP ONCE #1 tube 08/27/16 Unknown Rx oxyCODONE /ACETAMINOPHEN [Percocet 1 - 2 tab PO Q4HR PRN #30 tablet 08/27/16 Unknown Rx 5/325 mg] Sulfamethoxazole/Trimethoprim 1 each PO BID #6 tablet 09/21/16 Unknown Rx [Bactrim DS TAB] ED Physical Exam - General Limitations: No Limitations General appearance: alert, in no apparent distress - Eye Eye exam: Present: normal appearance, PERRL, EOMI - Respiratory Respiratory exam: Present: normal lung sounds bilaterally. Absent: respiratory distress, wheezes, rales, rhonchi, stridor - Cardiovascular Cardiovascular Exam: Present: regular rate, normal rhythm. Absent: systolic murmur, diastolic murmur, rubs, gallop - GI/Abdominal GI/Abdominal exam: Present: soft, normal bowel sounds - Neurological Exam Neurological exam: Present: alert, oriented X3, CN II-XII intact, normal gait. Absent: motor sensory deficit - Psychiatric Psychiatric exam: Present: normal affect, normal mood ED Course Vital Signs 09/21/16 09/21/16 14:04 21:08 Temperature 98.8 F Pulse Rate 82 72 Respiratory 16 Rate Blood Pressure 152/93 Blood Pressure 201/105 [Left] O2 Sat by Pulse 100 100 Oximetry ED Medical Decision Making - Lab Data Result diagrams: 09/21/16 19:15 09/21/16 19:15 - Medical Decision Making patient was seen in the ED earlier and was discharged home as blood pressure was within normal range. Patient is [address] Porras was aware that patient is coming back for blood work and to make sure her blood pressure does not remain elevated. Patient is currently on procardia as well. Blood work appears to be within normal range. UA reveals < 15 mg/dl of proteins. Blood pressure noted to be 200/105 in the ED currently. Spoke to Dr. Porras again and she advised to admit patient to Mother/baby area and give 5 mg of IV hydralazine. Spoke to Dr. Collazo and he is aware of this and agrees with the treatment plan. - Differential Diagnosis elevated blood pressure, pre eclampsia, accelerated blood pressure Critical care attestation.: If time is entered above; I have spent that time in minutes in the direct care of this critically ill patient, excluding procedure time. ED Disposition Clinical Impression: Pre-eclampsia in period Disposition: OP ADMITTED IP TO THIS HOSP Is pt being admited?: Yes Does the pt Need Aspirin: No Condition: Stable Instructions: Hypertension (ED) Prescriptions: Sulfamethoxazole/Trimethoprim [Bactrim DS TAB] 1 each PO BID #6 tablet Referrals: PRIMARY CARE, [Primary Care Provider] - 3-5 Days Forms: Work/School Release Form(ED)
[2016-09-21] MEDS ORDERED: APRESOLINE IV PRN (21:40)
--- NOTE | 2016-09-21 21:51 | History and Physical Report ---
History of Present Illness Date of examination: 09/21/16 Date of admission: 09/21/16 Chief complaint: high BP History of present illness: Pt s/p delivery on 08/27/16 via repeat c/s. She developed a wound infection for which she has been seeing wound care nurse daily. For the last several days, pt noted to have elevated blood pressures. Pt present to ER after having visit and call to office for elevated blood pressures.Pt was d/c home but only had one recorded bp and was called back for re-evaluaiton. Upon being called back bp was noted to be 200/100s. She denies any headaches or blurry vision. Pt admits to taking bp meds and not missing any doses. PIH labs negative and no protein on ua. Pt admitted for exacerbation of CHTN and bp management. Past History Past Medical History: hypertension, diabetes Past Surgical History: section, other (tubal ligation) Social history: no significant social history, - Obstetrical History : 2 Number of Living Children: 2 Medications and Allergies Allergies Allergy/AdvReac Type Severity Reaction Status Date / Time Penicillins AdvReac Unknown Unknown Verified 04/11/16 16:09 Home Medications Medication Instructions Recorded Confirmed Last Taken Type Labetalol [Normodyne] 800 mg PO TID 04/12/16 09/22/16 09/21/16 16:00 History Insulin NPH, Human [NovoLIN N] 10 unit SUB-Q QDI 08/23/16 09/22/16 09/20/16 History Insulin NPH, Human [NovoLIN N] 20 unit SUB-Q QHS 08/23/16 09/22/16 09/20/16 History Insulin Regular, Human 20 units SUB-Q QDI 08/23/16 09/22/16 09/21/16 13:00 History Insulin Regular, Human 28 units SUB-Q BIDLS 08/23/16 09/22/16 09/21/16 13:00 History NIFEdipine XL [Procardia Xl] 30 mg PO QDAY 08/23/16 09/22/16 1 Day Ago History Ibuprofen [Motrin 800 MG tab] 800 mg PO TID PRN #30 tablet 08/27/16 09/22/16 2 Days Ago Rx Lidocain2.5%/Prilocai2.5% [Emla] 5 gm TP ONCE #1 tube 08/27/16 09/22/16 Unknown Rx oxyCODONE /ACETAMINOPHEN [Percocet 1 - 2 tab PO Q4HR PRN #30 tablet 08/27/16 2 Weeks Ago Rx 5/325 mg] Sulfamethoxazole/Trimethoprim 1 each PO BID #6 tablet 09/21/16 Unknown Rx [Bactrim DS TAB] Active Meds: Active Medications Acetaminophen (Tylenol) 650 mg PO Q4H PRN PRN Reason: Pain MILD(1-3)/Fever >100.5/PACE Bisacodyl (Dulcolax) 10 mg OH QDAY PRN PRN Reason: Constipation unrelieved by MOM Hydralazine HCl (Apresoline) 5 mg IV ONCE PRN PRN Reason: Blood Pressure Stop: 09/24/16 21:39 Ibuprofen (Motrin) 600 mg PO Q6H PRN PRN Reason: Pain, Mild (1-3) Labetalol HCl (Normodyne) 800 mg PO TID ONE Stop: 09/21/16 21:40 Magnesium Hydroxide (Milk Of Magnesia) 30 ml PO Q4H PRN PRN Reason: Constipation Metformin HCl (Glucophage) 500 mg PO BID HERO Ondansetron HCl (Zofran) 4 mg IV Q8H PRN PRN Reason: N/V unrelieved by Reglan Trimethoprim/Sulfamethoxazole (Bactrim Ds) 1 each PO Q12HR HERO Review of Systems All systems: negative - Vital Signs Vital signs: Vital Signs Temp Pulse BP Pulse Ox 98.8 F 82 152/93 100 09/21/16 14:04 09/21/16 14:04 09/21/16 14:04 09/21/16 14:04 Temp Pulse Resp BP Pulse Ox 98.8 F 72 16 201/105 100 09/21/16 14:04 09/21/16 21:37 09/21/16 21:08 09/21/16 21:37 09/21/16 21:08 - Physical Exam Breasts: Positive: deferred Cardiovascular: Normal S1, Normal S2 Lungs: Positive: Normal air movement Abdomen: Positive: normal appearance, soft, other (dressing c/d/i) Genitourinary (Female): Positive: other (deferred) Extremities: Positive: normal. Negative: tenderness, edema Deep Tendon Reflex Grade: Normal +2 Results Result Diagrams: 09/21/16 19:15 09/21/16 19:15 Abnormal lab results 09/21/16 09/21/16 Range/Units 19:15 19:15 MCH 26 L (28-32) pg RDW 15.3 H (13.2-15.2) % Sodium 136 L (137-145) mmol/L Glucose 164 H (65-100) mg/dL Albumin 3.7 L (3.9-5) g/dL All other labs normal. Assessment and Plan - Patient Problems (1) Diabetes Current Visit: Yes Status: Acute Qualifiers: Diabetes mellitus type: type 2 Diabetes mellitus complication status: D Diabetes mellitus complication detail: D Diabetic retinopathy severity: D Proliferative retinopathy type: P Diabetes mellitus macular edema: D Diabetes mellitus parts counterman insulin use: D Laterality: L Chronic kidney disease stage: C Plan to address problem: -restart oral med pt was taking prior to -accuchecks fasting and 2hrs pp (2) Hypertension Current Visit: Yes Status: Acute Qualifiers: Hypertension type: essential hypertension Qualified Code(s): I10 - Essential (primary) hypertension Plan to address problem: -observation for better BP management -procardia increased to 60 q day -labetalol 800mg tid -consider cardiology consult if BP faizan not respond to above adjustments -Does not appear to be pre E as labs are normal and no protein is seen in urine. Will hold magnesium for now.
[2016-09-21] MEDS ORDERED: GLUCOPHAGE PO SCH (22:00)
[2016-09-21] MEDS ORDERED: NORMODYNE PO ONE (23:00)
[2016-09-21] MEDS: PROCARDIA XL PO SCH (23:35)
[2016-09-22] MEDS: BACTRIM DS PO SCH ×2 (00:04→13:24)
[2016-09-22] MEDS ORDERED: D50W (25GM) IV PRN (06:23)
--- NOTE | 2016-09-22 06:28 | Event Note ---
Date: 09/22/16 Ptr noted to have elevated blood glucose. s/p 1st dose of metformin upon admission. Will strat SSI at this time. Pt has apt with PCP on Sunday09/25/16. Bp has remained in normal range since admission to mother baby floor. Therefor all BP meds have been held. Pt did get hydralazine in thr ER 5mg prior to coming to the floor. Will cont to monitor both closely throughout the day.
[2016-09-22] MEDS: NOVOLOG SUB-Q SCH ×3 (06:47→15:35)
[2016-09-22] MEDS: NORMODYNE PO SCH ×2 (08:00→14:00)
--- NOTE | 2016-09-22 08:17 | Progress Note ---
Assessment and Plan Patient resting, no complaints. Denies pain, stress, change or stoppage of medication at home. is being cared for by [facility] and is expected to bring to hospital today. after elevated b/p in ED, pt received Hydralizine 5mg and b/p decreased 139/61 and most recently is 110's/50's. Last night's dose of Labetalol and Procardia held d/t "decreased blood pressure" of 139/61. Will resume medication today and continue to monitor. Patient reports she has appointment w/ [facility] practice Sunday09/25/16 and our practice Sunday09/26/16. Dr. Soto consulted. - Patient Problems (1) section wound complication Current Visit: Yes Status: Acute Plan to address problem: wound care to see patient today, dressing due to be changed. Continue Bactrim PO (2) Diabetes Current Visit: Yes Status: Acute Qualifiers: Diabetes mellitus type: type 2 Diabetes mellitus complication status: D Diabetes mellitus complication detail: D Diabetic retinopathy severity: D Proliferative retinopathy type: P Diabetes mellitus macular edema: D Diabetes mellitus fdc insulin use: D Laterality: L Chronic kidney disease stage: C Plan to address problem: Continue accuchecks as ordered Patient restarted on metformin, pt reports blood sugar well controlled with metformin BID prior to (3) Hypertension Current Visit: Yes Status: Acute Qualifiers: Hypertension type: essential hypertension Qualified Code(s): I10 - Essential (primary) hypertension Plan to address problem: Continue Labetalol 800TID Procardia 60 QD Doses held last night d/t b/p 139/61 after hydralizine in ED administered this AM - will continue to monitor and reevaluate Subjective - Subjective Date of service: 09/22/16 Principal diagnosis: HTN and pre-gestational DM Patient reports: appetite normal, voiding normally, ambulating normally, other ( no complaints; denies PACE, visual changes or epigastric pain. reports "I feel fine"), no dizzy ambulation, no nauseated [place]: other (infant at home with [facility]) Objective - Vital Signs Latest vital signs: Vital Signs Temp Pulse Pulse Resp BP BP 09/22/16 04:35 98.4 F 90 18 110/51 09/22/16 02:06 98.0 F 86 20 114/57 09/21/16 23:32 88 139/61 09/21/16 22:35 98.2 F 88 20 139/61 09/21/16 21:37 72 201/105 Intake and Output 09/21/16 09/22/16 09/22/16 22:59 06:59 14:59 Intake Total 240 Output Total 600 700 Balance -600 -460 Intake: Oral 240 Output: Urine 600 700 Void 600 700 Other: Total, Intake Amount 240 Total, Output Amount 600 700 Voiding Method Toilet - Exam Breasts: Present: normal Cardiovascular: Present: Regular rate Lungs: Present: Clear to auscultation, Normal air movement Abdomen: Present: normal appearance, soft, normal bowel sounds Extremities: Present: normal Deep Tendon Reflex Grade: Normal +2 Incision: Present: dressed (dressing with small area of clear drainage, wound care to see patient today. Skin around incision healed.) - Labs Labs: Abnormal lab results 09/21/16 09/22/16 Range/Units 23:20 05:38 POC Glucose 164 H 214 H (70-105)
[2016-09-22] MEDS ORDERED: NORMODYNE ONE (08:20)
--- NOTE | 2016-09-22 09:12 | Admit Criteria Form ---
Admission Criteria Documentation: HYPERTENSIVE DISORDERS OF Clinical Indications for Admission to Inpatient Care (Place 'X' for any and all applicable criteria): Admission is indicated for ANY ONE of the following (1)(2)(3)(4)(5): [ ]I. Eclampsia[A][B] [ ]II. Preeclampsia with severe features (ie, severe preeclampsia) indicated by ANY ONE of the following[B][C]: []a) SBP greater than or equal to 160 mm Hg or DBP greater than or equal to 110 mm Hg on 2 occasions at least 4 hours apart while the patient is at bed rest (unless antihypertensive therapy is initiated before this time) [ ]b) Platelet count less than 100,000/mm3 (100 x109/L) [ ]c) Impaired liver function as indicated by ANY ONE of the following: [ ]i. Elevation of liver enzymes (eg, SGOT, SGPT) to twice normal concentration [ ]ii. Severe persistent right upper quadrant or epigastric pain unresponsive to medication and not accounted for by alternative diagnosis [ ]d) Progressive renal insufficiency indicated by ANY ONE of the following: [ ]i. Serum creatinine concentration greater than 1.1 mg/dL (97 micromoles/L) [ ]ii. Doubling (from baseline) of serum creatinine concentration in the absence of other renal disease [ ]e) Pulmonary edema [ ]f) Cerebral or visual symptoms (eg, headache, Altered mental status , changes in vision) [ ]III. Delivery planned due to nonsevere preeclampsia as indicated by ALL of the following: [ ]a) Nonsevere preeclampsia present as indicated by ALL of the following: [ ]i. Woman at 20 or more weeks' gestation [ ]ii. New-onset SBP greater than or equal to 140 mm Hg but less than 160 mm Hg or DBP greater than or equal to 90 mm Hg but less than 110 mm Hg on 2 occasions at least 4 hours apart [ ]iii. Proteinuria present as indicated by ANY ONE of the following: [ ]A. Urinary protein excretion greater than or equal to 300 mg per 24-hour collection (or this amount extrapolated from a shorter timed collection) [ ]B. Protein/creatinine ratio greater than or equal to 0.3 (measured in mg/dL) [ ]b) Delivery indicated due to ANY ONE of the following: [ ]i. Gestational age of 37 0/7 weeks or more [ ]ii. Gestational age of 34 0/7 weeks to 36 6/7 weeks and ANY ONE of the following: [ ]A. Progressive labor or rupture of membranes [ ]B. Abnormal biophysical profile [ ]C. Suspected abruptio placentae [ ]D. Ultrasound estimate of weight less than 5th percentile [ ]E. Other indication for delivery [ ]IV. Delivery planned due to gestational hypertension[D] because of ANY ONE of the following: [ ]a) Delivery indicated because gestational age of 37 0/7 weeks or more has been reached [ ]b) Gestational age of 34 0/7 weeks to 36 6/7 weeks for which delivery is indicated because of ANY ONE of the following: [ ]i. Progressive labor or rupture of membranes [ ]ii. Abnormal biophysical profile [ ]iii. Suspected abruptio placentae [ ]iv. Ultrasound estimate of weight less than 5th percentile [ ]v. Other indication for delivery [ ]V. Hypertension of any category[E] during with acute end organ damage as indicated by ANY ONE of the following: [ ]a) Hypertensive encephalopathy (eg, Altered mental status that is severe or persistent )(11) [ ]b) Cerebral infarction [ ]c) Intracranial hemorrhage [ ]d) Myocardial ischemia or infarction [ ]e) Pulmonary edema [ ]f) Aortic dissection [ ]g) Seizure [ ]h) Papilledema [ ]i) Microangiopathic hemolytic anemia [ ]j) Visual loss [ ]k) Acute renal failure [ ]) Hypertension during with evidence of compromise as indicated by ANY ONE of the following: [ ]a) Abnormal heart tones [ ]b) Abnormal stress test [ ]c) Abnormal biophysical profile [X ]VII) patient requires inpatient control of blood pressure indicated by (see Hypertensive Disorders of : Observation Care [facility] guideline as appropriate) ALL of the following: [ X]a) SBP is greater than or equal to 160 mm Hg or DBP is greater than or equal to 105 mm Hg [ X]b) Blood pressure cannot be reduced below these levels with outpatient or observation care treatment (eg, oral medications not effective) Extended stay beyond goal length of stay may be needed for : [ ]a) Eclampsia [ ]b) Ongoing compromise [ ]c) Complications of hypertensive disorders of [ ]d) Active comorbidities (eg, heart failure, poorly controlled diabetes, renal insufficiency) [ ]e) Persistent hypertension [ ]f) Delivery planned The original [facility] content created by [facility] has been revised. The portions of the content which have been revised are identified through the use of italic text or in bold, and [facility] has neither reviewed nor approved the modified material. All other unmodified content is copyright [facility]. Please see references footnoted in the original [facility] edition 2016. Admission Criteria Met: Yes
[2016-09-22] MEDS ORDERED: IMODIUM A-D PO PRN (10:00)
[2016-09-22] MEDS: PROCARDIA XL PO SCH (10:00)
[2016-09-22] MEDS ORDERED: FLUARIX QUAD 2016-2017(36 MOS+) IM ONE (12:00)
[2016-09-22] MEDS: GLUCOPHAGE XR PO SCH ×2 (14:15→19:49)
--- NOTE | 2016-09-22 18:22 | Discharge Summary ---
Providers - Providers Date of Admission: 09/21/16 21:27 Date of discharge: 09/22/16 Attending physician: LAURA STRANGE 09/21/16 21:48 Consult to Wound/ET Nurse [CONS] Routine Reason For Exam: dressing changes q day Primary care physician: COPIER TECHNICIAN Hospitalization Reason for admission: elevated BP's Condition: Good Hospital course: Patient presented for BP controlled, she was evaluated by the [facility] RN who found her BP's to be elevated and call the office for further instruction. BP's were elevated in ED, she received hydralazine and her Procardia was increased. BP's remained stable. Her wound was evaluated by the is/it project manager and the patient was started on Bactrim. She's allowed home now Disposition: DISCHARGED TO HOME OR SELFCARE - Discharge Diagnoses (1) Uncontrolled hypertension Status: Chronic (2) Diabetes Status: Acute Qualifiers: Diabetes mellitus type: type 2 Diabetes mellitus complication status: D Diabetes mellitus complication detail: D Diabetic retinopathy severity: D Proliferative retinopathy type: P Diabetes mellitus macular edema: D Diabetes mellitus terminal gauger insulin use: D Laterality: L Chronic kidney disease stage: C Core Measure Documentation - Palliative Care Palliative Care/ Comfort Measures: Not Applicable - Core Measures Any of the following diagnoses?: none Exam - Constitutional Vitals: Temp Pulse Resp BP Pulse Ox 98.2 F 82 18 90/50 100 09/22/16 15:26 09/22/16 15:26 09/22/16 15:26 09/22/16 15:26 09/21/16 21:08 General appearance: Present: no acute distress - Respiratory Respiratory effort: normal Plan Activity: advance as tolerated Weight Bearing Status: Weight Bear as Tolerated Diet: low fat, low cholesterol, low salt, diabetic Wound: per wound nurse instructions (She is already established with [facility], the incision will be evaluated by her PCP tomorrow) Special Instructions: no heavy lifting Additional Instructions: Keep appointment with the wound clinic scheduled for 09/27/2016@0800. Take Procardia 60XL qd unless changed by your PCP. Keep appointment sam NANCE for 1000a tomorrow Follow up with: PRIMARY MD HOMA [Primary Care Provider] - (Tomorrow at 1000, LEE ANN) FILOMENA PAZ MD [Staff Physician] - 09/25/16 1:45 pm ([place]) Forms: Work/School Release Form(ED) Prescriptions: Sulfamethoxazole/Trimethoprim [Bactrim DS TAB] 1 each PO BID #6 tablet
[2016-09-22 19:27] VITALS: BP 111/66
== END 2016-09-22 19:45 | disposition home or self-care (01) | DRG 776 ==
LOC: ED 13:48 → OB 21:27
PROVIDERS: ADMIT Emergency Medicine; ATTEND Emergency Medicine
DX: O86.0 Infection of obstetric surgical wound (principal); O11.5 Pre-existing hypertension with pre-eclampsia, complicating the puerperium; O24.13 Pre-existing type 2 diabetes mellitus, in the puerperium; Z79.4 Long term (current) use of insulin; Z88.0 Allergy status to penicillin
CPT/HCPCS: 36415; 80053; 81001; 82962; 85025; 90471; 90686; 96374; G0008; J0360; J1815

== ENCOUNTER 2016-09-27 08:14 | Outpatient (CLI) | payer MEDICAID ==
[~2016-09-27 08:14] MED LIST: XYLOCAINE TOPICAL 4% TP ONE
[2016-09-27] MEDS ORDERED: XYLOCAINE TOPICAL 4% TP ONE (08:45)
== END 2016-09-27 08:15 | disposition home or self-care (01) ==
LOC: WOUND 08:14
PROVIDERS: ATTEND Internal Medicine
DX: T81.89XA Other complications of procedures, not elsewhere classified, initial encounter (principal); I10 Essential (primary) hypertension; E11.9 Type 2 diabetes mellitus without complications; Z87.891 Personal history of nicotine dependence; Y83.8 Other surgical procedures as the cause of abnormal reaction of the patient, or of later complication, without mention of misadventure at the time of the procedure; Y92.9 Unspecified place or not applicable
CPT/HCPCS: 99205; 99215; G0463

== ENCOUNTER 2016-10-04 09:31 | Outpatient (CLI) | payer MEDICAID ==
[2016-10-04] MEDS ORDERED: XYLOCAINE TOPICAL 4% TP ONE ×2 (09:55→10:26)
== END 2016-10-04 09:32 | disposition home or self-care (01) ==
LOC: WOUND 09:31
PROVIDERS: ATTEND Internal Medicine
DX: T81.89XD Other complications of procedures, not elsewhere classified, subsequent encounter (principal); I10 Essential (primary) hypertension; Z87.891 Personal history of nicotine dependence; Y83.8 Other surgical procedures as the cause of abnormal reaction of the patient, or of later complication, without mention of misadventure at the time of the procedure
CPT/HCPCS: 99215; G0463

== ENCOUNTER 2016-10-04 13:08 | Inpatient (IN) | payer MEDICAID ==
--- NOTE | 2016-10-04 14:14 | History and Physical Report ---
History of Present Illness Date of examination: 10/04/16 Date of admission: 10/04/16 13:26 Chief complaint: non-healing superficial section wound. Incision area with non healing below intact incision, opened in office and packed--needs wound vac, which I discussed with the wound care nurse Laurence Steward and she said she would come and do that either this afternoon or in AM History of present illness: This is a 36-year-old female 2 para 2 status post low transverse on on 08/27/2015 for severe preeclampsia at 34 weeks. She has a history of chronic hypertension and diabetes. Past History Past Medical History: hypertension, diabetes Past Surgical History: section Family/Genetic History: none Social history: no significant social history - Obstetrical History : 2 Medications and Allergies Allergies Allergy/AdvReac Type Severity Reaction Status Date / Time Penicillins AdvReac Unknown Unknown Verified 04/11/16 16:09 Home Medications Medication Instructions Recorded Confirmed Last Taken Type Lisinopril [Zestril] 20 mg PO BID 10/04/16 10/04/16 10/04/16 History 20mg NIFEdipine XL [Procardia Xl] 30 mg PO BID 10/04/16 10/04/16 10/04/16 History 30mg metFORMIN [Glucophage] 1,000 mg PO BID 10/04/16 10/04/16 10/04/16 History 1000 mg Review of Systems All systems: negative - Physical Exam Breasts: Positive: deferred Cardiovascular: Regular rate Lungs: Positive: Clear to auscultation Abdomen: Positive: normal appearance (incision area with non healing below intact incision, opened in office and packed--needs wound vac, which I discussed with the wound care nurse Laurence Steward and she said she would come and do that either this afternoon or in AM), soft Genitourinary (Female): Positive: normal external genitalia Extremities: Positive: normal Results Result Diagrams: 10/04/16 14:05 All other labs normal. Assessment and Plan - Patient Problems (1) section wound complication Onset Date: ~08/27/16 Current Visit: Yes Status: Acute Plan to address problem: Incision area with non healing below intact incision, opened in office and packed--needs wound vac, which I discussed with the wound care nurse Laurence Steward and she said she would come and do that either this afternoon or in AM (2) Hypertension Current Visit: Yes Status: Acute Qualifiers: Hypertension type: H (3) Diabetes Current Visit: No Status: Acute Qualifiers: Diabetes mellitus type: type 2 Diabetes mellitus complication status: D Diabetes mellitus complication detail: D Diabetic retinopathy severity: D Proliferative retinopathy type: P Diabetes mellitus macular edema: D Diabetes mellitus marine oil terminal superintendent insulin use: D Laterality: L Chronic kidney disease stage: C
[2016-10-04] MEDS ORDERED: XYLOCAINE 1% MPF 5 mL INFILTRATI ONE (15:00)
[2016-10-04 15:05] LABS: Hematocrit 32.8 % (30.3-42.9); Hemoglobin 10.4 gm/dl (10.1-14.3); Mean Corpuscular HGB Conc 32 % (30-34); Mean Corpuscular Volume 81 fl (79-97); Platelet Count 318 K/mm3 (140-440); Red Blood Count 4.06 M/mm3 (3.65-5.03); Red Cell Distribution Width 16.4 % (13.2-15.2); White Blood Count 9.5 K/mm3 (4.5-11.0)
[2016-10-04 15:11] LABS: Mean Corpuscular Hemoglobin 26 pg (28-32)
[2016-10-04] MEDS ORDERED: ROCEPHIN IM SCH (16:00)
[2016-10-04] MEDS: LACTATED RINGERS 1,000 ML IV SCH (17:28)
[2016-10-04] MEDS: ROCEPHIN/NS 1 GM/50 ML 1 GM/50 ML BAG IV SCH (20:58)
[2016-10-04] MEDS: PROCARDIA XL PO SCH (21:32)
[2016-10-04] MEDS: ZESTRIL PO SCH (21:33)
[2016-10-04] MEDS: GLUCOPHAGE PO SCH (22:00)
[2016-10-05] MEDS: LACTATED RINGERS 1,000 ML IV SCH ×2 (02:18→20:00)
--- NOTE | 2016-10-05 07:40 | Progress Note ---
Assessment and Plan Pt doing well this am awaiting evaluation and placement of wound vac by wound care nursing staff. Pt has no c/o. Dr. Porras discussed with pt that she will be d/c home once all of the home health care arrangements have been made. Pt expressed understanding and all questions were addressed and answered. Will continue current management at this time. Wound cx from 09/28(last admission) was negative for bacterial growth. Pt urine cx did show E. coli that is sensitive to the Rocephin she is currently taking and will need to be d/c home on oral antibiotics to full treat times one week. Pt "I just want this to be healed." Subjective - Subjective Date of service: 10/05/16 (pt w/o complaint this AM) Patient reports: appetite normal, voiding normally Objective - Vital Signs Latest vital signs: Vital Signs Temp Pulse Pulse Resp BP BP 10/05/16 04:05 99.0 F 96 H 20 125/71 10/05/16 00:00 98.5 F 88 20 119/69 10/04/16 21:33 87 127/80 10/04/16 20:00 98.8 F 87 18 127/80 10/04/16 15:50 98.2 F 101 H 18 101/71 10/04/16 14:20 98.4 F 102 H 18 119/85 Intake and Output 10/04/16 10/05/16 10/05/16 22:59 06:59 14:59 Intake Total 1080 2520 Output Total 500 Balance 580 2520 Intake: IV 600 2400 Lactated Ringers 1,000 ml 600 2400 @ 100 mls/hr IV DIRECT HERO Rx#:[id number] Oral 480 120 Output: Urine 500 Void 500 Other: Total, Intake Amount 240 120 Total, Output Amount 500 Voiding Method Toilet # Voids Void 1 1 - Exam Breasts: Present: normal Cardiovascular: Present: Regular rate Lungs: Present: Normal air movement Abdomen: Present: normal appearance, soft, normal bowel sounds Vulva: both: normal Uterus: Present: normal Extremities: Present: normal Deep Tendon Reflex Grade: Normal +2 Incision: Present: edematous, skin - Labs Labs: Abnormal lab results 10/04/16 10/04/16 10/05/16 Range/Units 14:05 17:40 06:15 MCH 26 L (28-32) pg RDW 16.4 H (13.2-15.2) % POC Glucose 146 H 136 H (70-105)
[2016-10-05] MEDS ORDERED: GLUCOPHAGE XR PO SCH (08:00)
--- NOTE | 2016-10-05 09:00 | Event Note ---
Date: 10/05/16 Pt doing well this am awaiting evaluation and placement of wound vac by wound care nursing staff. Pt has no c/o. I d/w that she will be d/c home once all of the home health care arrangements have been made. Pt expressed understanding and all questions were addressed and answered. Will cont current management at this time. Wound cx from 09/28(last admission) was negative for bacterial growth. Pt urine cx did show E. coli that is sensitive to the rocephine she is currently taking and will need to be d/c home on oral antibx to full treat times one week.
[2016-10-05] MEDS ORDERED: NORCO 5/325 PO PRN (09:30)
[2016-10-05] MEDS: PROCARDIA XL PO SCH ×2 (11:41→21:40)
[2016-10-05] MEDS: ZESTRIL PO SCH ×2 (11:42→21:40)
[2016-10-05] MEDS: ROCEPHIN/NS 1 GM/50 ML 1 GM/50 ML BAG IV SCH (21:07)
[2016-10-06] MEDS: LACTATED RINGERS 1,000 ML IV SCH (05:59)
[2016-10-06] MEDS: GLUCOPHAGE PO SCH (08:06)
--- NOTE | 2016-10-06 08:12 | Progress Note ---
Assessment and Plan Patient reports doing well, waiting on home wound vac to be delivered to hospital. Patient states she has spoken with home health and they will be out to see her twice a week starting Sunday. RN to check on status of home health. Plan for d/c home once patient has portable wound vac and home health confirmed. VSSAF. - Patient Problems (1) section wound complication Onset Date: ~08/27/16 Current Visit: Yes Status: Acute Subjective - Subjective Date of service: 10/06/16 (Conformal Pad Former note) Principal diagnosis: Wound healing, Wound vac in place Patient reports: appetite normal, voiding normally, pain well controlled, ambulating normally, no dizzy ambulation, no nauseated Objective - Vital Signs Latest vital signs: Vital Signs Temp Pulse Pulse Resp BP BP 10/06/16 04:15 98.5 F 80 20 107/65 10/06/16 00:00 98.9 F 74 20 118/74 10/05/16 21:40 90 137/79 10/05/16 20:10 98.9 F 86 20 109/67 10/05/16 16:30 97.9 F 93 H 20 148/79 10/05/16 11:42 85 118/69 10/05/16 11:34 97.9 F 85 20 118/69 10/05/16 08:50 98.9 F 94 H 20 117/66 Intake and Output 10/05/16 10/06/16 10/06/16 22:59 06:59 14:59 Intake Total 240 1120 Output Total 1600 1600 Balance -1360 -480 Intake: IV 1000 Lactated Ringers 1,000 ml 1000 @ 100 mls/hr IV DIRECT HERO Rx#:[id number] Oral 240 120 Output: Urine 1600 1600 Void 1600 1600 Other: Total, Intake Amount 120 120 Total, Output Amount 700 900 Voiding Method Toilet Toilet # Voids Void 1 1 - Exam Breasts: Present: normal Cardiovascular: Present: Regular rate Lungs: Present: Clear to auscultation, Normal air movement Abdomen: Present: normal appearance, soft Extremities: Present: normal Incision: Present: other (wound vac in place) - Labs Labs: Abnormal lab results 10/05/16 10/05/16 10/05/16 Range/Units 08:36 11:50 17:49 POC Glucose 128 H 187 H 195 H (70-105) 10/05/16 10/06/16 10/06/16 Range/Units 21:43 05:47 07:50 POC Glucose 221 H 106 H 118 H (70-105)
--- NOTE | 2016-10-06 08:21 | Discharge Summary ---
Providers - Providers Date of Admission: 10/04/16 13:26 Date of discharge: 10/06/16 (Home shari has been confirmed, waiting on delivery of portable wound vac) Attending physician: ROWDY JEONG 10/04/16 13:13 Consult to Wound/ET Nurse [CONS] Stat Reason For Exam: wound eval Primary care physician: ROWDY JEONG Hospitalization Reason for admission: observation (c/s wound complications) Incision: dressed (wound vac in place) Discharge diagnosis: other (c/s wound complications) Hospital course: wound care Condition at discharge: Good Disposition: DC/[place] HOME UNDER HOME HEALTH - Discharge Diagnoses (1) section wound complication Status: Acute Plan - Discharge Medications Prescriptions: Fluconazole [Diflucan] 100 mg PO QDAY #1 bottle Levofloxacin [Levaquin TAB] 500 mg PO QDAY #7 tablet - Provider Discharge Summary Activity: routine, no heavy lifting 4 weeks, no strenuous exercise Diet: routine Instructions: routine Additional instructions: [] Smoking cessation referral if applicable(refer to patient education folder for contact #) [] Refer to [facility] Booklet Call your doctor immediately for: * Fever > 100.5 * Heavy vaginal bleeding ( >1 pad per hour) * Severe persistent headache * Shortness of breath * Reddened, hot, painful area to leg or breast * Drainage or odor from incision. * Keep incision clean and dry at all times and follow doctor's instructions regarding bathing/showering - Follow up plan Follow up: ROWDY JEONG MD [Primary Care Provider] - 10/09/16 1:45 pm (Please call office for any questions or concerns. Your next appointment is Sunday10/09/16 @ 1:[address] Soto. )
[2016-10-06] MEDS: PROCARDIA XL PO SCH (09:59)
[2016-10-06] MEDS: ZESTRIL PO SCH (09:59)
[2016-10-06 10:21] VITALS: BP 115/70
== END 2016-10-06 13:30 | disposition home health service (06) | DRG 776 ==
LOC: 3A 13:08 → UNDOADMIN 13:08 → OB 13:26
PROVIDERS: ADMIT Obstetrics & Gynecology; ATTEND Obstetrics & Gynecology
DX: O86.0 Infection of obstetric surgical wound (principal); O11.5 Pre-existing hypertension with pre-eclampsia, complicating the puerperium; O24.13 Pre-existing type 2 diabetes mellitus, in the puerperium; Z88.1 Allergy status to other antibiotic agents
CPT/HCPCS: 36415; 82565; 82962; 85027; J0696; J7120

== ENCOUNTER 2016-10-12 09:27 | Outpatient (CLI) | payer MEDICAID ==
[2016-10-12] MEDS ORDERED: XYLOCAINE TOPICAL 4% TP ONE ×2 (10:31→15:15)
== END 2016-10-12 09:28 | disposition home or self-care (01) ==
LOC: WOUND 09:27
PROVIDERS: ATTEND Nurse Practitioner
DX: T81.31XD Disruption of external operation (surgical) wound, not elsewhere classified, subsequent encounter (principal); E08.8 Diabetes mellitus due to underlying condition with unspecified complications; I10 Essential (primary) hypertension; O86.0 Infection of obstetric surgical wound; Z87.891 Personal history of nicotine dependence; Y83.8 Other surgical procedures as the cause of abnormal reaction of the patient, or of later complication, without mention of misadventure at the time of the procedure
CPT/HCPCS: 97605

== ENCOUNTER 2016-10-19 09:23 | Outpatient (CLI) | payer MEDICAID ==
[2016-10-19] MEDS ORDERED: XYLOCAINE TOPICAL 4% TP ONE ×2 (09:38→16:04)
== END 2016-10-19 09:24 | disposition home or self-care (01) ==
LOC: WOUND 09:23
PROVIDERS: ATTEND Nurse Practitioner
DX: T81.31XD Disruption of external operation (surgical) wound, not elsewhere classified, subsequent encounter (principal); E08.8 Diabetes mellitus due to underlying condition with unspecified complications; I10 Essential (primary) hypertension; O86.0 Infection of obstetric surgical wound; Z87.891 Personal history of nicotine dependence; Y83.8 Other surgical procedures as the cause of abnormal reaction of the patient, or of later complication, without mention of misadventure at the time of the procedure
CPT/HCPCS: 97605; G0463; 99213

== ENCOUNTER 2016-10-26 09:13 | Outpatient (CLI) | payer MEDICAID ==
[2016-10-26] MEDS ORDERED: XYLOCAINE TOPICAL 4% TP ONE ×2 (09:27→09:38)
== END 2016-10-26 09:14 | disposition home or self-care (01) ==
LOC: WOUND 09:13
PROVIDERS: ATTEND Nurse Practitioner
DX: T81.89XD Other complications of procedures, not elsewhere classified, subsequent encounter (principal); E11.9 Type 2 diabetes mellitus without complications; I10 Essential (primary) hypertension; Z87.891 Personal history of nicotine dependence; Y83.8 Other surgical procedures as the cause of abnormal reaction of the patient, or of later complication, without mention of misadventure at the time of the procedure
CPT/HCPCS: 97608

== ENCOUNTER 2016-11-09 10:00 | Outpatient (CLI) | payer OTHER | END 2016-11-09 10:01 | disposition home or self-care (01) | LOC: WOUND 10:00 | PROVIDERS: ATTEND Nurse Practitioner | DX: T81.89XD Other complications of procedures, not elsewhere classified, subsequent encounter (principal); E11.9 Type 2 diabetes mellitus without complications; I10 Essential (primary) hypertension; Z87.891 Personal history of nicotine dependence; Y83.8 Other surgical procedures as the cause of abnormal reaction of the patient, or of later complication, without mention of misadventure at the time of the procedure | CPT/HCPCS: 97597 ==

== ENCOUNTER 2016-11-16 10:02 | Outpatient (CLI) | payer OTHER | END 2016-11-16 10:03 | disposition home or self-care (01) | LOC: WOUND 10:02 | PROVIDERS: ATTEND Nurse Practitioner | DX: T81.89XD Other complications of procedures, not elsewhere classified, subsequent encounter (principal); I10 Essential (primary) hypertension; E11.9 Type 2 diabetes mellitus without complications; Z87.891 Personal history of nicotine dependence; F15.90 Other stimulant use, unspecified, uncomplicated; Y83.8 Other surgical procedures as the cause of abnormal reaction of the patient, or of later complication, without mention of misadventure at the time of the procedure | CPT/HCPCS: 97597 ==

== ENCOUNTER 2016-11-23 09:17 | Outpatient (CLI) | payer OTHER | END 2016-11-23 09:18 | disposition home or self-care (01) | LOC: WOUND 09:17 | PROVIDERS: ATTEND Nurse Practitioner | DX: T81.89XD Other complications of procedures, not elsewhere classified, subsequent encounter (principal); E11.9 Type 2 diabetes mellitus without complications; I10 Essential (primary) hypertension; Z87.891 Personal history of nicotine dependence; Y83.8 Other surgical procedures as the cause of abnormal reaction of the patient, or of later complication, without mention of misadventure at the time of the procedure | CPT/HCPCS: 99211; G0463 ==